=== PATIENT | female | born 1995 | race Two or more races ===

== ENCOUNTER 2024-07-12 16:33 | Emergency (ER) | payer MEDICAID, SELFPAY ==
[2024-07-12 17:22] VITALS: BP 98/64; PULSE 89; RESP 18; TEMP 36.9; O2SAT 98; BMI 21.1
--- NOTE | 2024-07-12 17:40 | PD.EDRME ---
Rapid Medical Screening Exam RME Arrival date/time: 07/12/24 16:33 Chief Complaint: Dizziness Time Seen by Provider: 07/12/24 17:37 Vital signs: Vital Signs Temperature 98.5 F 07/12/24 17:22 Pulse Rate 89 07/12/24 17:22 Respiratory Rate 18 07/12/24 17:22 Blood Pressure 98/64 07/12/24 17:22 Pulse Oximetry (%) 98 07/12/24 17:22 Oxygen Delivery Method Room Air 07/12/24 17:22 Vital signs reviewed by provider: Yes RME Narrative: 29-year-old female currently 17 weeks presents with dysuria and intermittent headache x 2 days. Denies vaginal bleeding and abdominal pain.
[2024-07-12] MEDS: ACETAMINOPHEN 325 MG TABLET 650 MG PO (18:04)
[2024-07-12 18:14] LABS: Collection Type, Urine Clean Catch
[2024-07-12 18:22] LABS: Bilirubin,Urine Negative (Negative); Blood,Urine Negative (Negative); Clarity,Urine Clear (Clear/Hazy); Color,Urine Colorless (Lt Yel-Yel); Culture Indicated,Urine Not Indicated; Glucose, Urine Negative (Negative); Ketones,Urine Negative (Negative); Leukocyte Esterase,Urine Negative (Negative); Nitrite,Urine Negative (Negative); Protein,Urine Negative (Neg - Trace); RBC,Urine 1 /hpf (0-3); Specific Gravity,Urine 1.009 (1.001-1.035); Squamous Epithelial Cell,Urine 2 /hpf (0-5); Urobilinogen,Urine Negative mg/dL (0.0-1.0); WBC,Urine < 1 /hpf (0-5)
[2024-07-12 19:42] VITALS: BP 105/72; PULSE 104; RESP 18; TEMP 36.8; O2SAT 100
--- NOTE | 2024-07-12 19:46 | EDNOTE_ITS ---
<Statement entered by Kiesha Bedolla MD - 07/12/24 20:23> As co-signing physician, I was present and available for consult prn. I concur with the plan and care as documented by the midlevel provider. ED Dizzyness RME/HPI General Chief Complaint: Dizziness Stated Complaint: HEADACHE WITH DIZZINESS 17 WEEKS GESTATION Time Seen by Provider: 07/12/24 17:37 Arrival date/time: 07/12/24 16:33 RME / HPI RME / HPI Narrative: 29-year-old female currently 17 weeks presents with dysuria and intermittent headache x 2 days. Also complained of dizziness, severity mild. Denies vaginal bleeding and abdominal pain. Patient denies any nasal congestion denies any cough denies any sore throat denies any fever. Patient is crepitus admitted para 5 1. Denies any swelling to the legs. Related Data Home Medications ?Medication ?Instructions ?Recorded ?Confirmed No Known Home Medications 01/11/24 02/05/24 Allergies Allergy/AdvReac Type Severity Reaction Status Date / Time almond Allergy Severe throat Verified 07/12/24 16:34 swells and gets a rash Penicillins Allergy Severe Swelling Verified 07/12/24 16:34 of Lip/Tongue/Throat Review of Systems Review of Systems Narrative Review of Systems: Review of system reviewed and within normal limits except mentioned in HPI ED Exam Narrative Physical exam: VITAL SIGNS: Reviewed. GENERAL APPEARANCE: Alert and interactive, follows commands, no acute distress, HEAD AND FACE: Non-traumatic. ENT: PERRL, pink conjunctivitis, eyelid no trauma, Mucous membrane moist. NECK: Supple, nontender, no nuchal rigidity. CHEST: No tenderness, no crepitus, no paradoxical movement, no retractions. LUNGS: Clear, well ventilated, symmetric, no rales, no wheezing, no ronchi, no stridor, good breath sounds bilaterally. HEART: Regular rate, regular rhythm, no murmur, no gallops. ABDOMEN: Soft, positive bowel sounds, nondistended, no guarding, nontender, no rebound, no masses, RECTAL: Deferred. GENITAL: Deferred. NEUROLOGICAL: Gross motor function intact sensory function intact, Appropriate for age. MUSCULOSKELETAL: low back nontender, full range of motion. EXTREMITIES: Nontender, full range of motion. SKIN: Color pink, dry, no rash, no lacerations, no abrasions, no contusions. LYMPHATICS: Deferred. Course Quality Measures none Orders Category Date Time Status Bedside COVID-19 Antigen Test NOW Care 07/12/24 17:40 Completed Bedside Influenza A&B Antigen Test NOW Care 07/12/24 17:40 Completed UA, C/S IF [Urinalysis, C/S if Indicated] Stat Lab 07/12/24 18:10 Completed Acetaminophen Tab [Tylenol Tab] Med 07/12/24 17:40 Discontinued 650 mg PO X1 ONE Acetaminophen Tab [Tylenol Tab] Med 07/12/24 19:43 Discontinued 650 mg PO X1 ONE Vital Signs Vital signs: Vital Signs Temperature 98.5 F 07/12/24 17:22 Pulse Rate 89 07/12/24 17:22 Respiratory Rate 18 07/12/24 17:22 Blood Pressure 98/64 07/12/24 17:22 Pulse Oximetry (%) 98 07/12/24 17:22 Oxygen Delivery Method Room Air 07/12/24 17:22 Dizziness MDM Narrative MDM Narrative:: 29-year-old female currently 17 weeks presents with dysuria and intermittent headache x 2 days. Also complained of dizziness, severity mild. Denies vaginal bleeding and abdominal pain. Patient denies any nasal congestion denies any cough denies any sore throat denies any fever. Patient is crepitus admitted para 5 1. Denies any swelling to the legs. Urinalysis negative for UTI. Was also negative for COVID and influenza. Patient was given Tylenol. Patient data External records reviewed:: None Clinical information provided by:: none Social determinants that could affect healthcare access:: none Patient has the following chronic illnesses:: None How is presenting disease/condition affected by chronic disease/condition?: no chronic disease Evaluation data The following diagnostics were reviewed and interpreted by me:: lab results Lab and/or radiology exams considered but not ordered:: None Interpretation Summary: Negative for UTI and urinalysis. Negative for COVID and influenza swab Medications / Prescriptions Medications or Prescriptions considered but not ordered:: None Medication administrations:: Medication Administration History Discontinued Medications Acetaminophen (Acetaminophen 325 Mg Tablet) 650 mg PO X1 ONE Stop: 07/12/24 17:41 Last Admin: 07/12/24 18:04 Dose: 650 mg Documented By: GLORIA Acetaminophen (Acetaminophen 325 Mg Tablet) 650 mg PO X1 ONE Stop: 07/12/24 19:44 Tylenol Consultations Consultation(s) initiated? (list below): No Diagnosis Dizziness Differential Diagnosis: other (Headache, dizziness, ) Most likely diagnosis given after review of the tests above:: Headache, 17 weeks Admission Indicated Admission indicated?: not indicated Explain why admission is indicated or not indicated:: Stable for discharge. Patient blood pressure was noted to be 105/72 heart rate 104. Admission Request Was there a request for admission?: No Disposition Plan Disposition Plan: Discharge Discharge Attestation Discharge Attestation: The patient was given an opportunity to ask questions and understood the discharge instructions. Discharge instructions specifically effects, indications for sooner follow up or return to the emergency department, and the expected course of current diagnosis. Patient condition: Stable Discharge Plan Plan Patient Disposition: HOME (Self Care) Disposition Comment: stable Prescriptions/Referrals Prescriptions/Med Rec: No Action No Known Home Medications Referrals: Nash Platt MD [Primary Care Provider] - In 1 week Problem List Clinical Impression: Headache, , Dizziness Patient/Caregiver Discharge Instructions Discharge Activity: activity as tolerated Education Materials: Self-Care for Headaches Additional Instructions: Thank you for the opportunity for serving you today. You are stable for discharged . You are advised to: Follow-up with your PCP in 1 to 2 days Return to ED for worsening of symptoms Increase oral fluids Take afos-lvm-nolfkmi Tylenol as needed for headache Print Language: German Stand Alone Forms: Malia Award Info., Patient Portal Info Letter JOEL/DAT Supervising Physician JOEL/DAT Supervising Physician: MD Graeme
== END 2024-07-12 19:50 | disposition home or self-care (01) ==
PROVIDERS: Physician Assistant; Emergency Provider Emergency Medicine; PCP Family Medicine
DX: O26.892 Other specified pregnancy related conditions, second trimester (principal); R51.9 Headache, unspecified; R42 Dizziness and giddiness; Z3A.17 17 weeks gestation of pregnancy
CPT/HCPCS: 81001; 87400; 87811; 99283; A9270

== ENCOUNTER 2024-07-22 16:35 | Emergency (ER) | payer MEDICAID, SELFPAY ==
[2024-07-22 16:37] VITALS: BMI 21.1
[2024-07-22 17:04] VITALS: BP 90/60; PULSE 92; RESP 16; TEMP 37.1; O2SAT 100
--- NOTE | 2024-07-22 17:08 | XR_ITS ---
Examination: Complete OB ultrasound greater than 14 weeks Date and time of exam: July 22, 2024 1724 hrs. Indications: Leaking amniotic fluid beginning 1:00 PM today Findings: Viable intrauterine single fetus with single amniotic sac presentation variable Cardiac motion 148 BPM Placenta anterior grade 1 Umbilical cord insertion seen Amniotic fluid volume normal Cervix 4.2 cm Right ovary 2.3 x 2.2 cm arterial flow Left ovary 2.0 x 2.2 cm arterial flow. Composite estimated gestational age based on BPD, head circumference, abdominal circumference, femur length is weeks 2 days Estimated weight 235 g. Survey of intracranial anatomy, spinal anatomy, abdominal anatomy, four-chamber heart performed with no abnormalities identified. Impression: Viable intrauterine gestation variable presentation Amniotic fluid volume adequate Placenta anterior grade 1 no abruption no previa.
--- NOTE | 2024-07-22 17:09 | PD.EDRME ---
Rapid Medical Screening Exam RME Arrival date/time: 07/22/24 16:35 29-year-old female presents emergency department complains of cramping and pain patient reports being approximately 18 weeks Chief Complaint: Abdominal Pain Time Seen by Provider: 07/22/24 17:01 Vital signs: Vital Signs Temperature 98.8 F 07/22/24 17:04 Pulse Rate 92 07/22/24 17:04 Respiratory Rate 16 07/22/24 17:04 Blood Pressure 90/60 07/22/24 17:04 Pulse Oximetry (%) 100 07/22/24 17:04 Oxygen Delivery Method Room Air 07/22/24 17:04
[2024-07-22 17:20] LABS: Basophils % (Auto) 0 % (0-2.5); Eosinophils % (Auto) 1 % (0-10); Hematocrit 33.2 % (36.0-46.0); Hemoglobin 11.3 g/dL (12.0-16.0); Immature Granulocytes % (Auto) 0 % (0-0); Immature Granulocytes Auto 0.03 Thou/mm3 (0.00-0.00); Lymphocytes # (Auto) 2.1 Thou/mm3 (1.0-4.8); Lymphocytes % (Auto) 27 % (10-50); Mean Corpuscular Hemoglobin 29.3 pg (25.0-35.0); Mean Corpuscular Volume 86 fL (80-100); Monocytes # (Auto) 0.7 Thou/mm3 (0.0-0.8); Monocytes % (Auto) 9 % (0-12); Neutrophils % (Auto) 64 % (37-80); Nucleated Red Blood Cell % 0 /100 WBC (0); Platelet Count 193 Thou/mm3 (140-440); RDW Standard Deviation 40.6 fL (36.4-46.3); Red Blood Count 3.86 Miln/mm3 (4.00-5.20); White Blood Count 7.8 Thou/mm3 (3.6-11.0)
[2024-07-22 17:58] LABS: Alanine Aminotransferase 16 U/L (10-49); Albumin/Globulin Ratio 1.4 (1.2-2.2); Alkaline Phosphatase 60 U/L (46-116); Anion Gap 7 (7-16); Aspartate Amino Transferase 14 U/L (0-34); BUN/Creatinine Ratio 24 Ratio (12-20); Bilirubin,Total 0.3 mg/dL (0.3-1.2); Blood Urea Nitrogen 12 mg/dL (9-23); Calcium 9.3 mg/dL (8.3-10.6); Calcium (Corrected) 9.3 mg/dL (8.5-10.1); Carbon Dioxide 26.4 mMol/L (20.0-31.0); Chloride 103 mMol/L (98-107); Creatinine (Component) 0.5 mg/dL (0.6-1.3); Estimated Creatinine Clearance 124.1 mL/min (>60); Globulin 2.9 gm/dL (2.3-3.5); Glucose 82 mg/dL (74-106); Osmolality,Calculated 270 (275-295); Potassium 4.1 mMol/L (3.4-5.1); Sodium 136 mMol/L (136-145); Total Protein 6.9 gm/dL (5.7-8.2); eGFR > 60 See Note
[2024-07-22 18:15] LABS: Collection Type, Urine Clean Catch
[2024-07-22 18:23] LABS: Bacteria,Urine Rare; Bilirubin,Urine Negative (Negative); Blood,Urine Negative (Negative); Budding Yeast,Urine Present; Clarity,Urine Turbid (Clear/Hazy); Color,Urine Lt-Yellow (Lt Yel-Yel); Glucose, Urine Negative (Negative); Ketones,Urine Negative (Negative); Leukocyte Esterase,Urine Negative (Negative); Nitrite,Urine Negative (Negative); Protein,Urine Negative (Neg - Trace); RBC,Urine 2 /hpf (0-3); Specific Gravity,Urine 1.023 (1.001-1.035); Squamous Epithelial Cell,Urine 2 /hpf (0-5); Urobilinogen,Urine Negative mg/dL (0.0-1.0); WBC,Urine 5 /hpf (0-5)
[2024-07-22 18:27] LABS: Beta HCG,Quantitative 80124 mIU/mL (<5.0)
--- NOTE | 2024-07-22 19:22 | EDNOTE_ITS ---
ED Abdominal Pain RME/HPI General Chief Complaint: Abdominal Pain Stated complaint: TIGHTENING LOWER ABD BILAT. SINCE 1PM. 18WKS OB Time seen by provider: 07/22/24 17:01 Arrival date/time: 07/22/24 16:35 29-year-old female A1 approximately 18 weeks presents emergency department complaining of lower abdominal and pelvic cramping and pressure that started earlier this morning. Patient reports was doing house chores when onset of symptoms. Patient denies any vaginal bleeding, dysuria, fevers, chills, nausea vomiting, or any other associated symptom. Limitations: no limitations RME / HPI RME / HPI narrative: 07/22/24 16:35 29-year-old female presents emergency department complains of cramping and pain patient reports being approximately 18 weeks Related Data Home Medications ?Medication ?Instructions ?Recorded ?Confirmed No Known Home Medications 01/11/24 02/05/24 Allergies Allergy/AdvReac Type Severity Reaction Status Date / Time almond Allergy Severe throat Verified 07/22/24 16:41 swells and gets a rash Penicillins Allergy Severe Swelling Verified 07/22/24 16:41 of Lip/Tongue/Throat Review of Systems Review of Systems Systems Reviewed: All systems reviewed, normal except as documented Constitutional Constitutional: Reports system reviewed and no additional complaints, except as documented, Denies body ache(s), Denies chills and Denies fever(s) Eyes Eyes: Reports system reviewed and no additional complaints, except as documented and Denies change in vision ENT Ears, Nose, Mouth, and Throat: Reports system reviewed and no additional complaints, except as documented, Denies disequilibrium, Denies dizziness, Den ies sore throat and Denies vertigo Cardiovascular Cardiovascular: Reports system reviewed and no additional complaints, except as documented, Denies chest pain and Denies dyspnea Respiratory Respiratory: Reports system reviewed and no additional complaints, except as documented, Denies chest congestion, Denies cough and Denies dyspnea Gastrointestinal Gastrointestinal: Reports system reviewed and no additional complaints, except as documented, Reports abdominal pain, Denies nausea and Denies vomiting Musculoskeletal Musculoskeletal: Reports system reviewed and no additional complaints, except as documented, Denies abnormal gait and Denies arthralgias Integumentary/Breasts Skin/Breast: Reports system reviewed and no additional complaints, except as documented, Denies erythema, Denies rash and Denies wounds Neurologic Neurologic: Reports system reviewed and no additional complaints, except as do cumented, Denies abnormal gait, Denies disequilibrium, Denies dizziness and Denies vertigo Past Medical History Past Medical History NEUROLOGIC: Negative Neurological Disorders or Seizures CARDIAC: Positive Cardiac Disorders and Hypotension; Negative Congestive Heart Failure RESPIRATORY: Positive Asthma; Negative Chronic Obstructive Pulmonary Disease (COPD) GASTROINTESTINAL: Positive Gastrointestinal Disorders (ABDOMINAL PAIN, RECTAL BLEEDING) GENITOURINARY: Negative Genitourinary Disorders or Renal Disease MUSCULOSKELETAL: Negative Musculoskeletal Disorders ENDOCRINE: Negative Endocrine Disorders, Diabetes Mellitus Type 1 or Diabetes Mellitus Type 2 HEMATOLOGIC: Positive Anemia; Negative Sickle Cell Disease PSYCHO/SOCIAL: Positive Anxiety OTHER HISTORY: Positive Hospitalization and Chicken Pox; Negative Blood Transfusions, Anesthesia Reactions, Measles, Mumps or Cancer Family History FAMILY HISTORY: Positive Family Respiratory Disorders and Family Cardiac Disorders Surgical History SURGICAL: Negative Section Social History SMOKING STATUS: Never smoker SECOND HAND EXPOSURE: Yes (significant other smoker) ED Exam General Limitations: Present no limitations General appearance: Present alert and in no apparent distress Head Head exam: Present atraumatic Eye Eye exam: Present normal appearance, PERRL and EOMI ENT ENT exam: Present normal exam, normal oropharynx and mucous membranes moist Neck Neck exam: Present normal inspection, full ROM and trachea midline Chest Chest inspection: Present normal inspection and symmetric chest wall rise Respiratory Respiratory exam: Present normal lung sounds bilaterally Cardiovascular Cardiovascular exam: Present regular rate, normal rhythm and normal heart sounds Abdominal Exam Abdominal exam: Present soft and normal bowel sounds Extremities Exam Extremities exam: Present normal inspection and full ROM Back Exam Back exam: Present normal inspection and full ROM Neurological Exam Neurological exam: Present alert, oriented X3 and CN II-XII intact Psychiatric Psychiatric exam: Present normal affect and normal mood Skin Skin exam: Present warm, dry, intact and normal color Course Quality Measures none Orders Category Date Time Status US OB >= 14 weeks Fetus Stat Exams 07/22/24 17:08 Completed ABO/RH Type Stat Lab 07/22/24 17:11 Completed Beta HCG,Quantitative Stat Lab 07/22/24 17:11 Completed CBC Stat Lab 07/22/24 17:11 Completed Comprehensive Metabolic Panel Stat Lab 07/22/24 17:11 Completed UA [Urinalysis] Stat Lab 07/22/24 18:10 Completed Urine Culture Stat Lab 07/22/24 18:10 Received Vital Signs Vital signs: Vital Signs Temperature 98.8 F 07/22/24 17:04 Pulse Rate 92 07/22/24 17:04 Respiratory Rate 16 07/22/24 17:04 Blood Pressure 90/60 07/22/24 17:04 Pulse Oximetry (%) 100 07/22/24 17:04 Oxygen Delivery Method Room Air 07/22/24 17:04 100% room air within normal limits Abdominal Pain MDM MDM Narrative MDM Narrative:: 29-year-old female A1 approximately 18 weeks presents emergency department complaining of lower abdominal and pelvic cramping and pressure that started earlier this morning. Patient reports was doing house chores when onset of symptoms. Patient denies any vaginal bleeding, dysuria, fevers, chills, nausea vomiting, or any other associated symptom. CBC was unremarkable for any leukocytosis. CMP was unremarkable and beta-hCG greater than 80,000. Urinalysis was unremarkable. Ultrasound findings viable intrauterine gestation with heart tone 148 BPM. Patient appears nontoxic and hemodynamically stable. Patient reported improvement in symptoms and denies any vaginal bleeding. Patient discharge directed to have close follow-up with [facility] and return to emergency department for any worsening symptoms or as needed. Patient data External records reviewed:: [facility] previous records Clinical information provided by:: patient Social determinants that could affect healthcare access:: none Patient has the following chronic illnesses:: None How is presenting disease/condition affected by chronic disease/condition?: no chronic disease Evaluation data The following diagnostics were reviewed and interpreted by me:: lab results and radiology exam(s) Lab and/or radiology exams considered but not ordered:: Ordered Interpretation Summary: Interpreted by me Medications / Prescriptions Medications or Prescriptions considered but not ordered:: N/A Medication administrations:: N/A Consultations Consultation(s) initiated? (list below): No Diagnosis Differential diagnosis abdominal pain: abdominal pain, acute appendicitis, calculus of kidney, constipation and pancreatitis Most likely diagnosis given after review of the tests above:: Abdominal pain during Admission Indicated Admission indicated?: not indicated Admission Request Was there a request for admission?: No Disposition Plan Disposition Plan: Discharge Discharge Attestation Discharge Attestation: The patient and all family members were given an opportunity to ask questions and understood the discharge instructions. Discharge instructions specifically effects, indications for sooner follow up or return to the emergency department, and the expected course of current diagnosis. Patient condition: Stable Discharge Plan Plan Patient Disposition: HOME (Self Care) Disposition Comment: Stable Prescriptions/Referrals Prescriptions/Med Rec: No Action No Known Home Medications Referrals: Nash Platt MD [Primary Care Provider] - In 1 week Problem List Clinical Impression: Abdominal pain during Patient/Caregiver Discharge Instructions Discharge Activity: activity as tolerated Education Materials: ED Abdominal Pain Unkn Cause Fem Additional Instructions: Pelvic rest. Close follow-up with [facility] in 2 to 3 days. Return to emergency department for any worsening symptoms or as needed. Print Language: Portuguese Stand Alone Forms: Malia Award Info., Patient Portal Info Letter PA/SURFACE SUPERVISOR Supervising Physician PA/SURFACE SUPERVISOR Supervising Physician: Dr. Martell
== END 2024-07-22 19:35 | disposition home or self-care (01) ==
PROVIDERS: Nurse Practitioner Primary Care; Emergency Provider Emergency Medicine; PCP Family Medicine
DX: O26.892 Other specified pregnancy related conditions, second trimester (principal); R10.2 Pelvic and perineal pain; Z3A.18 18 weeks gestation of pregnancy
CPT/HCPCS: 36415; 76805; 80053; 81001; 84702; 85025; 86900; 86901; 87086; 99284

== ENCOUNTER 2024-10-29 15:06 | Emergency (ER) | payer MEDICAID, SELFPAY ==
[2024-10-29 15:56] VITALS: BP 99/65; PULSE 87; RESP 16; TEMP 36.6; O2SAT 99
--- NOTE | 2024-10-29 15:57 | EKG_ITS ---
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
--- NOTE | 2024-10-29 15:58 | PD.EDRME ---
Rapid Medical Screening Exam RME Arrival date/time: 10/29/24 15:06 29 year old female present to ED for c/o chest pain/dizziness 1 hour. 35 week I have greeted and performed a focused initial assessment of this patient. A comprehensive ED assessment and evaluation of the patient, analysis of all test results, and completion of the medical decision making process will be conducted by additional ED providers. Chief Complaint: Dizziness Time Seen by Provider: 10/29/24 15:35 Vital signs: Vital Signs Temperature 98 F 10/29/24 15:56 Pulse Rate 87 10/29/24 15:56 Respiratory Rate 16 10/29/24 15:56 Blood Pressure 99/65 10/29/24 15:56 Pulse Oximetry (%) 99 10/29/24 15:56 Oxygen Delivery Method Room Air 10/29/24 15:56
[2024-10-29 17:08] LABS: Collection Type, Urine Voided
[2024-10-29 17:10] LABS: Basophils % (Auto) 0 % (0-2.5); Eosinophils # (Auto) 0.1 Thou/mm3 (0.0-0.5); Eosinophils % (Auto) 1 % (0-10); Hematocrit 31.8 % (36.0-46.0); Hemoglobin 10.4 g/dL (12.0-16.0); Immature Granulocytes % (Auto) 1 % (0-0); Immature Granulocytes Auto 0.08 Thou/mm3 (0.00-0.00); Lymphocytes # (Auto) 1.6 Thou/mm3 (1.0-4.8); Lymphocytes % (Auto) 21 % (10-50); Mean Corpuscular HGB Conc 32.7 g/dl (31.0-37.0); Mean Corpuscular Hemoglobin 27.1 pg (25.0-35.0); Mean Corpuscular Volume 83 fL (80-100); Monocytes # (Auto) 0.8 Thou/mm3 (0.0-0.8); Monocytes % (Auto) 11 % (0-12); Neutrophils # (Auto) 4.8 Thou/mm3 (1.8-7.7); Neutrophils % (Auto) 65 % (37-80); Nucleated Red Blood Cell % 0 /100 WBC (0); Platelet Count 219 Thou/mm3 (140-440); RDW Standard Deviation 42.5 fL (36.4-46.3); Red Blood Count 3.84 Miln/mm3 (4.00-5.20); White Blood Count 7.3 Thou/mm3 (3.6-11.0)
[2024-10-29 17:20] LABS: Bacteria,Urine Rare; Bilirubin,Urine Negative (Negative); Blood,Urine Negative (Negative); Clarity,Urine Clear (Clear/Hazy); Color,Urine Lt-Yellow (Lt Yel-Yel); Glucose, Urine Negative (Negative); Ketones,Urine Negative (Negative); Leukocyte Esterase,Urine Positive (Negative); Nitrite,Urine Negative (Negative); Protein,Urine Negative (Neg - Trace); RBC,Urine 3 /hpf (0-3); Specific Gravity,Urine 1.009 (1.001-1.035); Squamous Epithelial Cell,Urine 5 /hpf (0-5); Urobilinogen,Urine Negative mg/dL (0.0-1.0); WBC,Urine 2 /hpf (0-5)
[2024-10-29 17:34] LABS: Alanine Aminotransferase 14 U/L (10-49); Albumin, Serum 3.6 gm/dL (3.5-5.0); Albumin/Globulin Ratio 1.2 (1.2-2.2); Alkaline Phosphatase 96 U/L (46-116); Anion Gap 9 (7-16); Aspartate Amino Transferase 16 U/L (0-34); BUN/Creatinine Ratio 14 Ratio (12-20); Bilirubin,Total 0.3 mg/dL (0.3-1.2); Blood Urea Nitrogen 7 mg/dL (9-23); Calcium 8.8 mg/dL (8.3-10.6); Calcium (Corrected) 9.1 mg/dL (8.5-10.1); Carbon Dioxide 24.7 mMol/L (20.0-31.0); Chloride 104 mMol/L (98-107); Creatinine (Component) 0.5 mg/dL (0.6-1.3); Globulin 3.1 gm/dL (2.3-3.5); Glucose 82 mg/dL (74-106); Lipase 32 U/L (12-53); Osmolality,Calculated 272 (275-295); Potassium 4.1 mMol/L (3.4-5.1); Sodium 138 mMol/L (136-145); Total Protein 6.7 gm/dL (5.7-8.2); Troponin I < 0.002 ng/mL (0.0-0.045); eGFR > 60 See Note
[2024-10-29 19:38] VITALS: BP 98/62; PULSE 97; RESP 16; TEMP 36.6; O2SAT 99
--- NOTE | 2024-10-29 19:40 | PD.EDDIZZY ---
ED Dizzyness RME/HPI General Chief Complaint: Dizziness Stated Complaint: LOW BP, SOB, DIZZY, CHEST PAIN, PREG 32W5D, Time Seen by Provider: 10/29/24 15:35 Arrival date/time: 10/29/24 15:06 29 year old female present to emergency room with c/o of shortness of breath, dizziness and currently 32 week . pt report intermittent abdominal pain without vaginal bleeding SEVERITY: Symptoms are described as being severe with limitations on activities of daily living CONTEXT: The patient is unable to identify any inciting events. DURATION/TIMING: The symptoms started approximately [employer] SYMPTOMS: The patient is unable to identify any other associated symptoms. MODIFYING FACTORS: The patient is unable to identify any alleviating or aggravating symptoms. PERTINENT ROS: no fevers, no cough, no pleuritic pain, no ripping or tearing sensations, denies any lower extremity edema and no unilateral swelling, no nausea,vomiting, diarrhea, no dizziness/headache no rash no loc/syncope episode no abd/back pain no dsyuria,urgency,frequency REVIEW OF SYSTEMS: See History of Present Illness - with the exception of those mentioned in the history of present illness, all other systems reviewed and reported as negative GENERAL: In general the patient is awake, interactive, in an emergency department gurney. HEAD/EYES/EARS/NOSE/THROAT: normo-cephalic, atraumatic, mucus membranes are moist, anicteric, palpebral conjunctiva is pink, trachea is midline. CARDIOVASCULAR: regular rate and regular rhythm, no murmurs, heart sounds are not distant, strong pulses in all four extremities that are equal and symmetric bilateral upper and lower extremities, normal capillary refill. CHEST/PULMONARY: normal chest rise and fall, good air movement, clear to auscultation bilaterally, normal inspiratory to expiratory ratios without evidence of respiratory distress. NECK: No midline/Paraspinal tenderness, no step off ROM/Strenght intact No Kernig and bruzinski sign. No trauma ABDOMEN: soft, not tender, no masses appreciated BACK: normal range of motion without pain. NEUROLOGICAL: cranio-facial features are symmetric, moves all four extremities equally without obvious limitations or weakness. EXTREMITY: no tenderness to palpation over the long bones or large joints of the bilateral upper and lower extremities, no joint swelling, no joint erythema, no signs of trauma, no unilateral leg swelling and no peripheral edema. SKIN: warm, dry, well-perfused, no jaundice, no rash, no telangiectasias or petechia. PSYCH: calm, cooperative, no evidence of psychosis or agitation RME / HPI RME / HPI Narrative: 10/29/24 15:06 29 year old female present to ED for c/o chest pain/dizziness 1 hour. 35 week I have greeted and performed a focused initial assessment of this patient. A comprehensive ED assessment and evaluation of the patient, analysis of all test results, and completion of the medical decision making process will be conducted by additional ED providers. Related Data Home Medications ?Medication ?Instructions ?Recorded ?Confirmed No Known Home Medications 01/11/24 02/05/24 Allergies Allergy/AdvReac Type Severity Reaction Status Date / Time almond Allergy Severe throat Verified 10/29/24 15:10 swells and gets a rash Penicillins Allergy Severe Swelling Verified 10/29/24 15:10 of Lip/Tongue/Throat Course Course Course Narrative: review of labs, ekg, and urine no acute findings pt report feeling better and sx has resolved vital stable without IV fluids no nausea or vomiting no fever, no leg pain or near/loc pt is comfortable to go home but will be sent upstair to OB to get baby check. Quality Measures none Orders Category Date Time Status Bedside Influenza A&B Antigen Test NOW Care 10/29/24 15:57 Completed EKG (ED ONLY) *Do not use* NOW Care 10/29/24 15:57 Completed EKG (ED Only) Stat Exams 10/29/24 15:57 Draft CBC Stat Lab 10/29/24 16:24 Completed CMP [Comprehensive Metabolic Panel] Stat Lab 10/29/24 16:24 Completed Lipase Stat Lab 10/29/24 16:24 Completed Troponin I Stat Lab 10/29/24 16:24 Completed UA [Urinalysis] Stat Lab 10/29/24 16:48 Completed Urine Culture Stat Lab 10/29/24 16:48 Received Vital Signs Vital signs: Vital Signs Temperature 98 F 10/29/24 15:56 Pulse Rate 87 10/29/24 15:56 Respiratory Rate 16 10/29/24 15:56 Blood Pressure 99/65 10/29/24 15:56 Pulse Oximetry (%) 99 10/29/24 15:56 Oxygen Delivery Method Room Air 03/18/25 15:56 Procedures -ED EKG Interpretation #1: Date of EK10/29/24 Rate: 80 Interpretation: Reviewed by me EKG Impression: Normal sinus rhythm, No acute ST-T changes, No ectopy, No ischemic changes and Normal QRS Dizziness Patient data External records reviewed:: [facility] previous records Clinical information provided by:: patient Social determinants that could affect healthcare access:: none Patient has the following chronic illnesses:: How is presenting disease/condition affected by chronic disease/condition?: uneffected by Evaluation data The following diagnostics were reviewed and interpreted by me:: lab results, radiology exam(s) and EKG tracing(s) Lab and/or radiology exams considered but not ordered:: n/a Interpretation Summary: as stated in course Medications / Prescriptions Medications or Prescriptions considered but not ordered:: n/a Medication administrations:: n/a Consultations Consultation(s) initiated? (list below): No Diagnosis Most likely diagnosis given after review of the tests above:: dizziness, Admission Indicated Admission indicated?: not indicated Admission Request Was there a request for admission?: No Disposition Plan Disposition Plan: Discharge Discharge Attestation Discharge Attestation: The patient and all family members were given an opportunity to ask questions and understood the discharge instructions. Discharge instructions specifically effects, indications for sooner follow up or return to the emergency department, and the expected course of current diagnosis. Patient condition: Stable Discharge Plan Plan Patient Disposition: HOME (Self Care) Health Concerns: Cleared to go to OB Prescriptions/Referrals Prescriptions/Med Rec: No Action No Known Home Medications Referrals: No Primary/Family,Physician [Primary Care Provider] - In 1 week Problem List Clinical Impression: Dizziness, Abdominal pain in Patient/Caregiver Discharge Instructions Print Language: Hebrew Stand Alone Forms: Malia Award Info., Patient Portal Info Letter
== END 2024-10-29 19:46 | disposition home or self-care (01) ==
PROVIDERS: Physician Assistant; Emergency Provider Emergency Medicine
DX: O26.893 Other specified pregnancy related conditions, third trimester (principal); R10.9 Unspecified abdominal pain; R42 Dizziness and giddiness; Z3A.32 32 weeks gestation of pregnancy
CPT/HCPCS: 36415; 80053; 81001; 83690; 84484; 85025; 87086; 93005; 99283

== ENCOUNTER 2024-10-29 19:51 | Observation (INO) | payer MEDICAID, SELFPAY ==
[2024-10-29 19:53] VITALS: BP 112/62; PULSE 95; RESP 18; RESP 98; TEMP 36.7; BMI 25.3
[2024-10-29 20:03] VITALS: TEMP 36.7
== END 2024-10-29 20:23 | disposition home or self-care (01) ==
PROVIDERS: Admitting Provider Obstetrics & Gynecology; Visit Provider Obstetrics & Gynecology
DX: Z34.83 Encounter for supervision of other normal pregnancy, third trimester (principal); Z3A.32 32 weeks gestation of pregnancy
CPT/HCPCS: 59899

== ENCOUNTER 2024-11-21 16:18 | Inpatient (IN) | payer MEDICAID, SELFPAY ==
[2024-11-21] VITALS (93 sets, daily range): BP systolic 88–109; BP diastolic 50–64; PULSE 107–124; RESP 19–97; TEMP 37.3–38.8; O2SAT 96–100; BMI 25.3
[2024-11-21 17:05] LABS: ROM Kit Lot # 57804486; ROM Swab Mixed By: BARBE1; Swb Mxed in Solvent 1 min? Yes
--- NOTE | 2024-11-21 17:29 | XR_ITS ---
Examination: Complete OB ultrasound greater than 14 weeks Date and time of exam: November 21, 20242002 hrs. Indications: Fever beginning 2 days ago Findings: Viable intrauterine single fetus with single amniotic sac presentation cephalic Cardiac motion 166 BPM Placenta anterior grade 2 Umbilical cord insertion seen Amniotic fluid index 4.3 cm spine posterior Cervix 3.3 cm Ovaries obscured by the uterus. Composite estimated gestational age based on BPD, head circumference, abdominal circumference, femur length is 35 weeks 2 days Estimated weight 2576 g. Survey of intracranial anatomy, spinal anatomy, abdominal anatomy, four-chamber heart performed with no abnormalities identified. Impression: Viable intrauterine gestation cephalic presentation Estimated gestational age 35 weeks 2 days.
--- NOTE | 2024-11-21 17:29 | XR_ITS ---
Examination: Biophysical profile, ultrasound Date and time of exam: November 21, 2024 1934 hrs. Indications: Fever beginning 2 days ago Technique: Multiple transabdominal sonographic images of the pelvis abdomen obtained. Attention is directed to the breathing movement, gross body movement, amniotic fluid volume and tone. Findings: Amniotic fluid index 4.9 cm Total biophysical profile is 8 of 8. breathing movement is 2. Gross body movement is 2. tone is 2. Qualitative amniotic fluid volume is 2 Impression: Biophysical profile is 8 of 8.
[2024-11-21] MEDS: RINGERS LACTATED 1000 ML 1,000 ML 999 ML IV ×2 (17:35→18:38)
[2024-11-21 17:40] LABS: Rupture of Fetal Membranes Negative (Negative)
[2024-11-21] MEDS: ACETAMINOPHEN IVPB 1,000 MG/100 ML VIAL 250 MG IV (18:42)
--- NOTE | 2024-11-21 19:30 | XR_ITS ---
Examination: AP chest single view Technique one AP portable semiupright chest single view Exam date and time: November 21, 20242022 hrs. Comparison June 06, 2022 Indications: Onset sepsis today Findings: Normal heart size Mild vascular congestion. No lobar pneumonia Intact osseous structures Impression: Mild vascular congestion No lobar pneumonia
--- NOTE | 2024-11-21 19:30 | EKG_ITS ---
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
[2024-11-21 19:31] LABS: COVID-19 Antigen (In-House) Negative (Negative)
[2024-11-21 20:06] LABS: Collection Type, Urine Clean Catch
[2024-11-21] MEDS: DEXTROSE 5%-LACTATED RINGERS 1,000 ML 125 ML IV (20:30)
--- NOTE | 2024-11-21 20:45 | PD.LDHP ---
Documentation for date of: 11/21/24 OB Labor/Induct. HPI History of Present Illness : 6 Term pregnancies: 4 pregnancies: 0 Living children: 4 History of Abortions: Spontaneous and Elective: 1 History of sections: No History of : No History of present illness: 29 y/o @36w0d , LMP and 10 w US, presented with fever and feeling unwell for few days. Patient kids are ill and she also believes she has an ear and throat pain. Patient has been having coughing and says her chest hurts because of coughing . [place] however doesnot feel chest pain. With constant cough however , she feels like she is short of breath. Ronaldo is unsure if she took any influenza vaccine in this pregnnacy . Pt denied any nausea , vomitting .has had a meal at 2.30 pm. Although earlier she did feel diziness, currently she doesnot feel diziness any more . Occasional contractions felt , also felt leaking . denied any bleeding. H/O asthma, however , last time ronaldo used any inhaler was 6 years back No h/o CHTN, Diabetes , immunocompromising condition. History of Present Dating criteria: LMP confirmed by 1st trimester US Adequate Care: Yes Labs Narrative: GC -ve, GTT -ve Review of Systems Review of Systems Systems Reviewed: All systems reviewed, normal except as documented Constitutional Constitutional: Reports system reviewed and no additional complaints, except as documented, Denies body ache(s), Denies chills and Denies fever(s) Eyes Eyes: Reports system reviewed and no additional complaints, except as documented and Denies change in vision ENT Ears, Nose, Mouth, and Throat: Reports system reviewed and no additional complaints, except as documented, Denies disequilibrium, Denies dizziness, Denies sore throat and Denies vertigo Cardiovascular Cardiovascular: Reports system reviewed and no additional complaints, except as documented, Denies chest pain and Denies dyspnea Respiratory Respiratory: Reports system reviewed and no additional complaints, except as documented, Denies chest congestion, Denies cough and Denies dyspnea Gastrointestinal Gastrointestinal: Reports system reviewed and no additional complaints, except as documented, Reports abdominal pain, Denies nausea and Denies vomiting Musculoskeletal Musculoskeletal: Reports system reviewed and no additional complaints, except as documented, Denies abnormal gait and Denies arthralgias Integumentary/Breasts Skin/Breast: Reports system reviewed and no additional complaints, except as documented, Denies erythema, Denies rash and Denies wounds Neurologic Neurologic: Reports system reviewed and no additional complaints, except as documented, Denies abnormal gait, Denies disequilibrium, Denies dizziness and Denies vertigo Past Medical History Surgical History SURGICAL: Negative Section Meds Home Medications and Allergies Home Medications ?Medication ?Instructions ?Recorded ?Confirmed ?Type acetaminophen 500 mg tablet 500 mg PO Q6H PRN fever or pain 11/21/24 11/21/24 History vit no.95-ferrous 1 tab PO DAILY 11/21/24 11/21/24 History fumarate 28 mg-folic acid 800 mcg tablet () Allergies Allergy/AdvReac Type Severity Reaction Status Date / Time almond Allergy Severe throat Verified 11/21/24 20:03 swells and gets a rash Penicillins Allergy Severe Swelling Verified 11/21/24 20:03 of Lip/Tongue/Throat OB Exam Physical Exam Vital signs: Temp Pulse Resp BP Pulse Ox 101.9 F H 114 H 19 104/58 L 100 11/21/24 20:10 11/21/24 20:40 11/21/24 20:10 11/21/24 20:40 11/21/24 20:25 Constitutional Constitutional: no acute distress Routine HEENT Exam Head: Present normocephalic and atraumatic Eye: Present EOMI and PERRL ENT: Present mucous membranes moist Routine Neck Exam Neck: Present supple and trachea midline Routine Respiratory Exam Comments: o2 saturation 99-100% cough+ Routine Cardiovascular Exam Cardiovascular: Present RRR Routine Abdominal Exam Abdominal: Present soft and normoactive bowel sounds Detailed Labor and Delivery Exam Comments: tachycardia resolving not in labor Routine Extremities Exam Extremities: Present full ROM Routine Skin Exam Skin: Present intact, dry and warm Routine Neurological Exam Neurological: Present alert, oriented X3 and CN II-XII intact Routine Psychiatric Exam Psychiatric: Present normal affect and normal thought process OB Results Labs 11/21/24 20:21 11/21/24 20:21 Impressions Impression: 29 y/o @36w, here for fever from URTI Influenza B positive Saturation 100%, ABG pending Sepsis triggered Xray chest no pneumonia Lactic acid normal EKG sinus tachycardia tachycardia> resolving after IV fluids moderate variability acceleration presnet no decel Maternal hypoglycemia( BG 61) s/p D5 LR Asthma last inhaler use 6 years ago IM consultation Pregnanacy is Uncomplicated cephalic 35w2d per US BPP 8/8( DONY 4.9?), MVP>2 Amnisure negative hypokalemia k 3.1 OB Assessment & Plan Additional Plan Additional Plan Comment: admit to L&D for observation IVF D5+LR Tylenol q6 PRN Tamiflu started Broad spectrum antibiotics pending blood culture Contineuos FHT monitoring DONY to be repeated tomorow in case of oligohydramnios , IOL will be initiated Pottasium oral supplementation
[2024-11-21 20:46] LABS: Lactate (Lactic Acid) 1.3 mMol/L (0.4-2.0)
[2024-11-21 20:47] LABS: Bacteria,Urine Rare; Bilirubin,Urine Negative (Negative); Blood,Urine Negative (Negative); Clarity,Urine Clear (Clear/Hazy); Color,Urine Yellow (Lt Yel-Yel); Glucose, Urine Negative (Negative); Ketones,Urine 1+ (Negative); Leukocyte Esterase,Urine Negative (Negative); Nitrite,Urine Negative (Negative); Protein,Urine Negative (Neg - Trace); RBC,Urine 3 /hpf (0-3); Specific Gravity,Urine 1.014 (1.001-1.035); Squamous Epithelial Cell,Urine 2 /hpf (0-5); Urobilinogen,Urine Negative mg/dL (0.0-1.0); WBC,Urine 3 /hpf (0-5)
[2024-11-21 20:51] LABS: Basophils % (Auto) 0 % (0-2.5); Eosinophils % (Auto) 0 % (0-10); Hematocrit 27.3 % (36.0-46.0); Immature Granulocytes % (Auto) 1 % (0-0); Immature Granulocytes Auto 0.05 Thou/mm3 (0.00-0.00); Lymphocytes # (Auto) 0.6 Thou/mm3 (1.0-4.8); Lymphocytes % (Auto) 11 % (10-50); Mean Corpuscular HGB Conc 32.2 g/dl (31.0-37.0); Mean Corpuscular Hemoglobin 26.5 pg (25.0-35.0); Mean Corpuscular Volume 82 fL (80-100); Monocytes # (Auto) 0.7 Thou/mm3 (0.0-0.8); Monocytes % (Auto) 12 % (0-12); Neutrophils % (Auto) 75 % (37-80); Nucleated Red Blood Cell % 0 /100 WBC (0); Platelet Count 161 Thou/mm3 (140-440); RDW Standard Deviation 46.4 fL (36.4-46.3); Red Blood Count 3.32 Miln/mm3 (4.00-5.20); White Blood Count 5.3 Thou/mm3 (3.6-11.0)
[2024-11-21 20:54] LABS: Hemoglobin 8.8 g/dL (12.0-16.0)
[2024-11-21 20:59] LABS: Influenza A Ag Negative; Influenza B Ag Positive
[2024-11-21 21:07] LABS: Partial Thromboplastin Time 28.5 Seconds (22.0-36.0); Prothrombin Time 10.8 Seconds (9.0-12.2)
[2024-11-21 21:10] LABS: Alanine Aminotransferase 19 U/L (10-49); Albumin/Globulin Ratio 1.1 (1.2-2.2); Alkaline Phosphatase 105 U/L (46-116); Anion Gap 12 (7-16); Aspartate Amino Transferase 21 U/L (0-34); BUN/Creatinine Ratio 12 Ratio (12-20); Bilirubin,Total 0.4 mg/dL (0.3-1.2); Blood Urea Nitrogen 6 mg/dL (9-23); Calcium 8.5 mg/dL (8.3-10.6); Calcium (Corrected) 9.3 mg/dL (8.5-10.1); Carbon Dioxide 19.9 mMol/L (20.0-31.0); Chloride 106 mMol/L (98-107); Creatinine (Component) 0.5 mg/dL (0.6-1.3); Estimated Creatinine Clearance 137.6 mL/min (>60); Globulin 2.7 gm/dL (2.3-3.5); Glucose 75 mg/dL (74-106); Osmolality,Calculated 272 (275-295); Potassium 3.1 mMol/L (3.4-5.1); Sodium 138 mMol/L (136-145); Total Protein 5.7 gm/dL (5.7-8.2); Troponin I < 0.002 ng/mL (0.0-0.045); eGFR > 60 See Note
[2024-11-21 21:23] LABS: Allen Test Performed/OK; Base Excess -2 (-3-3); HCO3 22 mEq/L (20-26); Inspired Oxygen, FIO2 21 %; O2 Saturation 99 % (91-98); PCO2 32 mmHg (32.0-48.0); PO2 97 mmHg (83-108); Puncture Site Left Radial; pH, Arterial 7.44 (7.35-7.45)
[2024-11-21] MEDS: CLINDAMYCIN 900MG IVPB 900 MG in PRE-MIXED 1 BAG 50 MG IV (21:27)
[2024-11-21 22:00] LABS: Procalcitonin 0.07 ng/ml (0.0-0.49)
[2024-11-21] MEDS: POTASSIUM CHLORIDE 20 mEq TABCR PO (22:15)
[2024-11-21] MEDS: OSELTAMIVIR 75 MG CAPSULE PO (22:16)
[2024-11-21] MEDS: RINGERS LACTATED 1000 ML 1,000 ML 100 ML IV (22:19)
--- NOTE | 2024-11-21 22:23 | EVENTNT_ITS ---
Documentation for date of: 11/21/24 Event Note Event Note: A 29-year-old female presented to the hospital with the chief complaint of fever and generalized weakness. The fever began yesterday and has been accompanied by chills, persistent cough, mild shortness of breath, and hoarseness of voice. The patient denies chest pain but reports a sensation of chest heaviness, likely due to coughing. She reports no dysuria and maintains a good appetite. She also notes mild uterine contracti ons and some fluid leakage, though she denies any vaginal bleeding. Earlier in the day, she experienced dizziness which has since resolved. She reports that her daughter had an ear infection two weeks ago but denies any current sick contacts at home. The patient has a history of asthma, though she has not used an inhaler in six years. She has no history of HTN, DM, or immunocompromising conditions. She is not on any medications or supplements. She is at 36 weeks gestation and reports occasional hypotension. Social history is negative for smoking, alcohol, or drug use. She has five children and this is her sixth . In the OB triage, vital signs were temp 101.9?F, HR 114 bpm, RR 19, BP 104/58 mmHg. Lab results showed WBC 5.3, Hb 8.8, Plt 161, Na 138, K 3.1, BUN 6, Cr 0.5, lactic acid 0.07, and procalcitonin 1.3. UA revealed WBC 3 and nitrite negative. CXR showed no lobar pneumonia. EKG revealed sinus tachycardia. Rapid influenza testing was positive for Influenza B. She was admitted to the OB service, and Medicine was consulted for sepsis management. See the resident's note for the full consultation.
--- NOTE | 2024-11-21 23:25 | ESCONSULT_ITS ---
HPI Data of Consult Requesting Physician: Prateek Harmon MD Admitting Provider: Prateek Harmon MD Attending Provider: Prateek Harmon MD Primary Care Provider: Physician No Primary/Family Consult Narrative History of present illness: The patient is a 29-year-old female with significant past medical history of remote asthma presented to ED with chief complaint of cough, SOB, chills associated with hoarseness of voice for 1 day. Hospitalist team was consulted for tachycardia. The patient admitted mild headache, with uterine contraction and mild fluid leakage but denied any lightheadedness, chest pain, abdominal pain, and changes in bowel or bladder habit or leg swelling. She is currently 7 para 5 at 36 weeks of gestation. In the ED her vitals were significant for temperature 101.9, heart rate 214, RR 19, blood pressure 104/58. During my evaluation her vitals were significant for blood pressure 101/55, heart rate 113 and temperature 99.1. Labs were significant for hemoglobin 8.8, hematocrit 27.3, RDW 46, coag panel WNL, blood gas WNL, chemistry panel fairly stable and UA revealed rare bacteria but no urinary symptoms. Serology was positive for influenza B. Chest x-ray revealed mild vascular congestion, but was negative for pneumonia In the ED, maternal sepsis alert was called and she received 2 L of IV LR, acetaminophen thousand Mg IV x 1, gentamicin and clindamycin, oseltamivir 75 Mg twice daily and admitted to the hospital. PMH: As mentioned above SHX: Unremarkable Social history: Denies any alcohol, smoking or drug abuse Medications: Acetaminophen 500 Mg as needed for fever, and vitamin Allergies: [place]; throat swelling and gets a rash, penicillin swelling of lip/tongue/throat cc:: cc: Prateek Harmon MD Review of Systems Review of Systems Systems Reviewed: All systems reviewed, normal except as documented Exam Vital Signs Temp Pulse Resp BP Pulse Ox 100.9 F H 115 H 20 106/58 L 98 11/22/24 00:40 11/22/24 01:04 11/22/24 00:06 11/22/24 01:04 11/22/24 01:03 Narrative Exam General: No acute distress. Alert and Oriented x 3. HEENT: Moist mucous membranes, oropharynx sunny.ar Neck: Supple, No masses, No JVD. CVS: Tachycardic, No murmurs, rubs or gallops. Lungs: Clear to auscultation with no accessory use, no wheeze no rhonchi. Abd: Soft, NT/ND, +BS, no organomegaly, distended lower abdomen. Ext: No edema, warm and well perfused. Skin: No rash. Psych: Tired appearing. Results Labs 11/21/24 20:21 11/22/24 00:18 Labs: Short CBC 11/21/24 Range/Units 20:21 WBC 5.3 (3.6-11.0) Thou/mm3 Hgb 8.8 L (12.0-16.0) g/dL Hct 27.3 L (36.0-46.0) % Plt Count 161 D (140-440) Thou/mm3 BMP 11/21/24 20:21 Sodium 138 Potassium 3.1 L Chloride 106 Carbon Dioxide 19.9 L BUN 6 L Creatinine 0.5 L Glucose 75 Calcium 8.5 Cardiac Enzymes 11/21/24 Range/Units 20:21 Troponin I < 0.002 (0.0-0.045) ng/mL Liver Function 11/21/24 Range/Units 20:21 Total Bilirubin 0.4 (0.3-1.2) mg/dL AST 21 (0-34) U/L ALT 19 (10-49) U/L Alkaline Phosphatase 105 (46-116) U/L Albumin 3.0 L (3.5-5.0) gm/dL Urine 11/21/24 Range/Units 19:50 Urine Color Yellow (Lt Yel-Yel) Urine Clarity Clear (Clear/Hazy) Urine pH 7.0 (5.0-7.0) Ur Specific [place] 1.014 (1.001-1.035) Urine Protein Negative (Neg - Trace) Urine Glucose (UA) Negative (Negative) ABG Interpretation ABG results: 11/21/24 20:16 ABG pH 7.44 ABG pCO2 32 ABG pO2 97 ABG HCO3 22 ABG O2 Saturation 99 H ABG Base Excess -2 Quality Measures Quality Measures VTE prophylaxis Medications Home Medications and Allergies Home Medications ?Medication ?Instructions ?Recorded ?Confirmed ?Type acetaminophen 500 mg tablet 500 mg PO Q6H PRN fever or pain 11/21/24 11/21/24 History vit no.95-ferrous 1 tab PO DAILY 11/21/2406/07 History fumarate 28 mg-folic acid 800 mcg tablet () Allergies Allergy/AdvReac Type Severity Reaction Status Date / Time almond Allergy Severe throat Verified 11/21/24 20:03 swells and gets a rash Penicillins Allergy Severe Swelling Verified 11/21/24 20:03 of Lip/Tongue/Throat Visit Medications Acetaminophen (Acetaminophen 325 Mg Tablet) 650 mg PO Q6HR PRN PRN Reason: FEVER >101 Stop: 12/21/24 19:56 Last Admin: 11/22/24 00:40 Dose: 650 mg Dextrose (Dextrose 50%-Water Inj 50 Ml Syringe) 25 ml IV Q15MIN PRN PRN Reason: BG 50-70 responsive npo pt Stop: 12/21/24 20:21 Dextrose (Dextrose 50%-Water Inj 50 Ml Syringe) 50 ml IV Q15MIN PRN PRN Reason: BG <50 OR BG <70 & pt unresponsive Stop: 12/21/24 20:21 Glucagon (Glucagon Inj 1 Mg Vial) 1 mg IM Q15MIN PRN PRN Reason: BG <70, and no IV access Lactated Ringer's (Lactated Ringers) 1,000 mls @ 100 mls/hr IV .Q10H SOFIA Stop: 12/21/24 21:48 Last Admin: 11/21/24 22:19 Dose: 100 mls/hr Magnesium Sulfate (Magnesium Sulfate Ivpb) 2 gm in 50 mls @ 25 mls/hr IV X1 ONE Stop: 11/22/24 01:56 Last Admin: 11/22/24 00:26 Dose: 25 mls/hr Oseltamivir Phosphate (Oseltamivir 75 Mg Capsule) 75 mg PO BID SOFIA Stop: 11/28/24 20:59 Last Admin: 11/21/24 22:16 Dose: 75 mg Discontinued Medications Lactated Ringer's (Lactated Ringers) 1,000 mls @ 999 mls/hr IV .Q1H1M ONE Stop: 11/21/24 18:25 Last Admin: 11/21/24 17:35 Dose: 999 mls/hr Lactated Ringer's (Lactated Ringers) 1,000 mls @ 999 mls/hr IV .Q1H1M ONE Stop: 11/21/24 19:30 Last Admin: 11/21/24 18:38 Dose: 999 mls/hr Acetaminophen (Ofirmev Inj) 1,000 mg in 100 mls @ 250 mls/hr IV NOW ONE Stop: 11/21/24 18:54 Last Admin: 11/21/24 18:42 Dose: 250 mls/hr Clindamycin Phosphate 900 mg/ (IV Miscellaneous Supplies) 50 mls @ 50 mls/hr IV Q8HR SOFIA Stop: 11/28/24 21:59 Last Admin: 11/21/24 21:27 Dose: 50 mls/hr Gentamicin Sulfate 300 mg/ (Sodium Chloride) 107.5 mls @ 107.5 mls/hr IV X1 ONE Stop: 11/21/24 21:14 Last Admin: 11/21/24 20:33 Dose: 107.5 mls/hr Dextrose/Lactated Ringer's (D5-Lr) 1,000 mls @ 125 mls/hr IV .Q8H SOFIA Stop: 12/21/24 19:59 Last Admin: 11/21/24 20:30 Dose: 125 mls/hr Pharmacy Consult (Pharmacy To Dose Gentamicin) 1 each IV QDAY SOFIA Stop: 12/21/24 19:59 Last Admin: 11/21/24 21:26 Dose: Not Given Potassium Chloride (Potassium Chloride 20 Meq Tabcr) 20 meq PO X1 ONE Stop: 11/21/24 21:23 Last Admin: 11/21/24 22:15 Dose: 20 meq Potassium Chloride (Potassium Chloride 20 Meq Tabcr) 40 meq PO X1 ONE Stop: 11/21/24 23:58 Last Admin: 11/22/24 00:40 Dose: 40 meq Assessment & Plan Plan The patient is a 29-year-old female with significant past medical history of remote asthma presented to ED with chief complaint of cough, SOB, chills associated with hoarseness of voice for 1 day. Hospitalist team was consulted for tachycardia is admitted to hospital for further management of maternal sepsis secondary to influenza B. Hospitalist team was consulted for sinus tachycardia. #Sinus tachycardia 2/2 #Sepsis 2/2 influenza B Met 2/4 SIRS criteria with tachycardia and fever of 101.9 Positive for influenza B Chest x-ray negative for pneumonia Patient received 2 L of IV LR, acetaminophen 1000 Mg IV x 1, gentamicin and clindamycin including oseltamivir 75 Mg in the ED - Continue on IV maintenance LR fluid 100 cc/h - Continue with oseltamivir 75 Mg twice daily - Blood, urine and vaginal swab culture ordered - Daily a.m. labs for CBC, CMP and electrolytes #Hypokalemia Patient presented with potassium of 3.1 - Given 20 MEQ p.o. x 1 and 40 mEq p.o. x 1 of KCl - Ordered magnesium 2 g IV x 1 # 7 para 5 at 36-week of gestation - Management deferred to primary HOME COMFORT ADVISOR team Thank you for the opportunity to participate in this patient care. The patient's management plan was discussed with my attending physician MD Ryan Ghosh MD, PGY2 Attending Provider Attestation/Addendum Pt was evaluated and plan formulated together with the housestaff team. I have reviewed the residents note above and agree with most of its content. Please refer to the residents note for additional details. Treat flu.
[2024-11-22] VITALS (319 sets, daily range): BP systolic 68–112; BP diastolic 39–74; PULSE 82–226; RESP 16–25; TEMP 36.7–38.4; O2SAT 88–100
[2024-11-22] MEDS: Magnesium Sulfate 2 GM Ivpb 2 GM/50 ML BAG IV (00:26)
[2024-11-22] MEDS: POTASSIUM CHLORIDE 20 mEq TABCR 40 MEQ PO (00:40)
[2024-11-22] MEDS: ACETAMINOPHEN 325 MG TABLET 650 MG PO (00:40)
[2024-11-22 01:04] LABS: Anion Gap 8 (7-16); BUN/Creatinine Ratio 8 Ratio (12-20); Blood Urea Nitrogen < 5 mg/dL (9-23); Calcium 7.9 mg/dL (8.3-10.6); Carbon Dioxide 24.6 mMol/L (20.0-31.0); Chloride 108 mMol/L (98-107); Creatinine (Component) 0.6 mg/dL (0.6-1.3); Estimated Creatinine Clearance 114.7 mL/min (>60); Glucose 122 mg/dL (74-106); Magnesium 1.7 mg/dL (1.6-2.6); Osmolality,Calculated 279 (275-295); Potassium 3.5 mMol/L (3.4-5.1); Sodium 141 mMol/L (136-145); eGFR > 60 See Note
[2024-11-22 05:13] LABS: Gentamicin, Random < 0.5 mcg/mL (4.0-10.0)
[2024-11-22 07:59] LABS: Basophils % (Auto) 0 % (0-2.5); Eosinophils % (Auto) 0 % (0-10); Hematocrit 28.1 % (36.0-46.0); Hemoglobin 9.2 g/dL (12.0-16.0); Immature Granulocytes % (Auto) 0 % (0-0); Immature Granulocytes Auto 0.02 Thou/mm3 (0.00-0.00); Lymphocytes # (Auto) 0.7 Thou/mm3 (1.0-4.8); Lymphocytes % (Auto) 12 % (10-50); Mean Corpuscular HGB Conc 32.7 g/dl (31.0-37.0); Mean Corpuscular Hemoglobin 26.8 pg (25.0-35.0); Mean Corpuscular Volume 82 fL (80-100); Monocytes # (Auto) 0.8 Thou/mm3 (0.0-0.8); Monocytes % (Auto) 13 % (0-12); Neutrophils # (Auto) 4.3 Thou/mm3 (1.8-7.7); Neutrophils % (Auto) 74 % (37-80); Nucleated Red Blood Cell % 0 /100 WBC (0); Platelet Count 172 Thou/mm3 (140-440); RDW Standard Deviation 47.1 fL (36.4-46.3); Red Blood Count 3.43 Miln/mm3 (4.00-5.20); White Blood Count 5.8 Thou/mm3 (3.6-11.0)
--- NOTE | 2024-11-22 08:00 | XR_ITS ---
Examination: age Limited Technique: Limited transabdominal sonographic images pelvis Exam date and time: November 22, 2024 0909 hrs. Indications: History low amniotic fluid November 21, 2024 4.9 cm Findings: Amniotic fluid index 7.2 cm Cardiac motion 148 BPM Impression: Amniotic fluid index 7.2 cm
[2024-11-22 09:07] LABS: Alanine Aminotransferase 18 U/L (10-49); Albumin, Serum 3.3 gm/dL (3.5-5.0); Albumin/Globulin Ratio 1.2 (1.2-2.2); Alkaline Phosphatase 117 U/L (46-116); Anion Gap 7 (7-16); Aspartate Amino Transferase 21 U/L (0-34); BUN/Creatinine Ratio 12 Ratio (12-20); Bilirubin,Total 0.4 mg/dL (0.3-1.2); Blood Urea Nitrogen 6 mg/dL (9-23); Calcium 7.7 mg/dL (8.3-10.6); Calcium (Corrected) 8.3 mg/dL (8.5-10.1); Carbon Dioxide 22.7 mMol/L (20.0-31.0); Chloride 110 mMol/L (98-107); Creatinine (Component) 0.5 mg/dL (0.6-1.3); Estimated Creatinine Clearance 137.6 mL/min (>60); Globulin 2.7 gm/dL (2.3-3.5); Glucose 86 mg/dL (74-106); Osmolality,Calculated 276 (275-295); Potassium 4.1 mMol/L (3.4-5.1); Sodium 140 mMol/L (136-145); eGFR > 60 See Note
[2024-11-22] MEDS: OSELTAMIVIR 75 MG CAPSULE PO ×2 (09:08→20:36)
[2024-11-22] MEDS: ACETAMINOPHEN IVPB 1,000 MG/100 ML VIAL 250 MG IV (10:50)
--- NOTE | 2024-11-22 12:24 | PRELIM_ITS ---
Limited obstetric ultrasound for AFB calculation. November 22, 2024 0900 hours Clinical history: check DONY level. Comparison: No prior study is available for comparison at the time of interpretation Findings and impression: There is adequate amniotic fluid volume (DONY=7.2 cm). heart rate = 148 bpm. Report Electronically Signed By: Darian Serrano 11/22/2024 12:24:07 PM [EST]
--- NOTE | 2024-11-22 13:21 | PC.NURSE ---
labile BPs noted, 500 cc bolus started, Dr. Curran notified and aware
--- NOTE | 2024-11-22 14:24 | ESPR_ITS ---
Documentation for date of: 11/22/24 CAT DRIVER Subjective Subjective Interval history: Luz Maria is feeling slightly improved since admission last night. Her biggest complaint today is throat pain from coughing. She was initially asleep when I came to see her. Baby is moving well. She feels occasional ctx, but no pattern or pain. No LOF or vaginal bleeding. No fevers/chills since the middle of the night. Exam Vital Signs Temp Pulse Resp BP Pulse Ox 98.3 F 87 16 87/56 L 97 11/22/24 12:04 11/22/24 14:17 11/22/24 12:04 11/22/24 14:17 11/22/24 14:21 Narrative Exam General: well developed, well nourished, no acute distress, conversant Cardiac: normal heart rate Lungs: breathing without distress Abdomen: soft, gravid, non-tender, no rebound or guarding Extremities: no pain with palpation of calves Urinary Catheter Management Cath placed during this visit: no CAT DRIVER - PN: Obj Data Labs 11/22/24 06:40 11/22/24 07:55 Labs: Laboratory Results - last 24 hr 11/21/24 11/21/24 11/21/24 16:57 17:42 19:50 WBC RBC Hgb Hct MCV MCH MCHC RDW Std Deviation Plt Count Neut % (Auto) Lymph % (Auto) [place] % (Auto) Eos % (Auto) Baso % (Auto) Neut # (Auto) Lymph # (Auto) [place] # (Auto) Eos # (Auto) Baso # (Auto) Immature Gran # (Auto) Absolute Nucleated RBC Immature Gran % Nucleated RBC % PT INR APTT Puncture Site ABG pH ABG pCO2 ABG pO2 ABG HCO3 ABG O2 Saturation ABG Base Excess FiO2 Sodium Potassium Chloride Carbon Dioxide Anion Gap BUN Creatinine Estim Creat Clear Calc eGFR BUN/Creatinine Ratio Glucose Calculated Osmolality Lactic Acid Calcium Corrected Calcium Phosphorus Magnesium Total Bilirubin AST ALT Alkaline Phosphatase Troponin I Total Protein Albumin Globulin Albumin/Globulin Ratio Procalcitonin Ur Collection Type Clean Catch Urine Color Yellow Urine Clarity Clear Urine pH 7.0 Ur Specific [place] 1.014 Urine Protein Negative Urine Glucose (UA) Negative Urine Ketones 1+ A Urine Blood Negative Urine Nitrite Negative Urine Bilirubin Negative Urine Urobilinogen (Auto) Negative Ur Leukocyte Esterase Negative Urine RBC 3 Urine WBC 3 Ur Squamous Epith Cells 2 Urine Bacteria Rare Membrane Rupture Negative Random Gentamicin Influenza A (Rapid) Negative Influenza B (Rapid) Positive A SARS-CoV-2 Ag (Rapid) Negative 11/21/24 11/21/24 11/22/24 20:16 20:21 00:18 WBC 5.3 RBC 3.32 L Hgb 8.8 L Hct 27.3 L MCV 82 MCH 26.5 MCHC 32.2 RDW Std Deviation 46.4 H Plt Count 161 D Neut % (Auto) 75 Lymph % (Auto) 11 [place] % (Auto) 12 Eos % (Auto) 0 Baso % (Auto) 0 Neut # (Auto) 4.0 Lymph # (Auto) 0.[address] [place] # (Auto) 0.7 Eos # (Auto) 0.0 Baso # (Auto) 0.0 Immature Gran # (Auto) 0.05 H Absolute Nucleated RBC 0.00 Immature Gran % 1 H Nucleated RBC % 0 PT 10.8 INR 1.0 APTT 28.5 Puncture Site Left Radial ABG pH 7.44 ABG pCO2 32 ABG pO2 97 ABG HCO3 22 ABG O2 Saturation 99 H ABG Base Excess -2 FiO2 21 Sodium 138 141 Potassium 3.1 L 3.5 Chloride 106 108 H Carbon Dioxide 19.9 L 24.6 Anion Gap 12 8 BUN 6 L < 5 L Creatinine 0.5 L 0.6 Estim Creat Clear Calc 137.6 114.7 eGFR > 60 > 60 BUN/Creatinine Ratio 12 8 L Glucose 75 122 H D Calculated Osmolality 272 L 279 Lactic Acid 1.3 Calcium 8.5 7.9 L Corrected Calcium 9.3 Phosphorus 3.0 Magnesium 1.7 Total Bilirubin 0.4 AST 21 ALT 19 Alkaline Phosphatase 105 Troponin I < 0.002 Total Protein 5.7 Albumin 3.0 L Globulin 2.7 Albumin/Globulin Ratio 1.1 L Procalcitonin 0.07 Ur Collection Type Urine Color Urine Clarity Urine pH Ur Specific [place] Urine Protein Urine Glucose (UA) Urine Ketones Urine Blood Urine Nitrite Urine Bilirubin Urine Urobilinogen (Auto) Ur Leukocyte Esterase Urine RBC Urine WBC Ur Squamous Epith Cells Urine Bacteria Membrane Rupture Random Gentamicin Influenza A (Rapid) Influenza B (Rapid) SARS-CoV-2 Ag (Rapid) 11/22/24 11/22/24 11/22/24 04:30 06:40 07:55 WBC 5.8 RBC 3.43 L Hgb 9.2 L Hct 28.1 L MCV 82 MCH 26.8 MCHC 32.7 RDW Std Deviation 47.1 H Plt Count 172 Neut % (Auto) 74 Lymph % (Auto) 12 [place] % (Auto) 13 H Eos % (Auto) 0 Baso % (Auto) 0 Neut # (Auto) 4.3 Lymph # (Auto) 0.[address] [place] # (Auto) 0.8 Eos # (Auto) 0.0 Baso # (Auto) 0.0 Immature Gran # (Auto) 0.02 H Absolute Nucleated RBC 0.00 Immature Gran % 0 Nucleated RBC % 0 PT INR APTT Puncture Site ABG pH ABG pCO2 ABG pO2 ABG HCO3 ABG O2 Saturation ABG Base Excess FiO2 Sodium Cancelled 140 Potassium Cancelled 4.1 D Chloride Cancelled 110 H Carbon Dioxide Cancelled 22.7 Anion Gap Cancelled 7 BUN Cancelled 6 L Creatinine Cancelled 0.5 L Estim Creat Clear Calc Cancelled 137.6 eGFR Cancelled > 60 BUN/Creatinine Ratio Cancelled 12 Glucose Cancelled 86 Calculated Osmolality Cancelled 276 Lactic Acid Calcium Cancelled 7.7 L Corrected Calcium Cancelled 8.3 L Phosphorus Magnesium Total Bilirubin Cancelled 0.4 AST Cancelled 21 ALT Cancelled 18 Alkaline Phosphatase Cancelled 117 H Troponin I Total Protein Cancelled 6.0 Albumin Cancelled 3.3 L Globulin Cancelled 2.7 Albumin/Globulin Ratio Cancelled 1.2 Procalcitonin Ur Collection Type Urine Color Urine Clarity Urine pH Ur Specific [place] Urine Protein Urine Glucose (UA) Urine Ketones Urine Blood Urine Nitrite Urine Bilirubin Urine Urobilinogen (Auto) Ur Leukocyte Esterase Urine RBC Urine WBC Ur Squamous Epith Cells Urine Bacteria Membrane Rupture Random Gentamicin < 0.5 L Influenza A (Rapid) Influenza B (Rapid) SARS-CoV-2 Ag (Rapid) ABG Interpretation ABG results: 11/21/24 20:16 ABG pH 7.44 ABG pCO2 32 ABG pO2 97 ABG HCO3 22 ABG O2 Saturation 99 H ABG Base Excess -2 CAT DRIVER - A/P Assessment and plan (1) Influenza B: Status: Acute Assessment and plan: Luz Maria is a 29yo with SIUP @36wk with Influenza B, having fevers and cough/congestion. When in triage a sepsis code was triggered for maternal fever and tachycardia (also had tachycardia 180's), and at that time IM was consulted and they are following along. She is receiving Tamiflu. CXR wnl. WBC 5.8. After IVF and tylenol, tachycardia resolved as well as maternal fever and tachycardia. She has had a couple fluid boluses today for asyptomatic hypotension (bp as low as 60's/40's), and received D5LR last night for hypoglycemia (fsg 61). Initial ultrasound showed oligohydramnios DONY 4.9cm last night. Resolved on repeat DONY 7.2cm. Amnisure was negative. Cat I FHRT. Plan: -Continue observation given episodes of hypotension -Continue Tamiflu -Continue tylenol prn -Rx cepacol spray and tessalon pearles for cough and sore throat since those are the sx bothering her most -NST q6hr -Regular diet and encourage oral hydration -Continue maintenance IVF -Continue PNV, ferrous sulfate for anemia Time Spent With Patient Time: Total time spent is greater than 50% in coordination of care (as documented) at patient's floor/unit and/or counseling patient: Time with patient: 25 - 35 minutes
[2024-11-22] MEDS: BENZONATATE 100 MG CAPSULE 200 MG PO (15:15)
--- NOTE | 2024-11-22 15:34 | ESPR_ITS ---
Documentation for date of: 11/22/24 Subjective Subjective Interval history: Hospitalist team is consults overnight. Patient seen and examined at bedside this morning patient remains mildly tachycardic and fluids are ordered patient has remained afebrile for the past 3 hours will continue to monitor. Patient is influenza B positive therefore Tamiflu is ordered. Patient denies shortness of breath chest pain or abdominal pain she states that she went to a market where she was exposed to many people however she does not recall being around anyone sick recently. Patient denies those will be doing or headaches. Will continue to monitor patient's heart rate and temperatures. Exam Vital Signs Temp Pulse Resp BP Pulse Ox 98.3 F 85 16 91/54 L 98 11/22/24 12:04 11/22/24 15:05 11/22/24 12:04 11/22/24 15:05 11/22/24 15:29 Narrative Exam GENERAL: A&Ox3 . Awake, Not in acute distress NEURO: no focal neurological deficits HEENT: Atraumatic, Normocephalic. mucous membranes moist. Eyes open, symmetrical, & clear HEART: Normal Heart Sounds LUNGS: Clear to auscultation with no wheezing or crackles. ABDOMEN: pt is 36 weeks , abdomen is consistent with SKIN: No Rash or ecchymoses EXTREMITIES: No edema, tenderness, able to move all 4 extremities, pedal pulses palpated Objective Labs 11/23/24 06:36 11/23/24 06:36 Labs: Laboratory Results - last 24 hr 11/21/24 11/21/24 11/21/24 16:57 17:42 19:50 WBC RBC Hgb Hct MCV MCH MCHC RDW Std Deviation Plt Count Neut % (Auto) Lymph % (Auto) [place] % (Auto) Eos % (Auto) Baso % (Auto) Neut # (Auto) Lymph # (Auto) [place] # (Auto) Eos # (Auto) Baso # (Auto) Immature Gran # (Auto) Absolute Nucleated RBC Immature Gran % Nucleated RBC % PT INR APTT Puncture Site ABG pH ABG pCO2 ABG pO2 ABG HCO3 ABG O2 Saturation ABG Base Excess FiO2 Sodium Potassium Chloride Carbon Dioxide Anion Gap BUN Creatinine Estim Creat Clear Calc eGFR BUN/Creatinine Ratio Glucose Calculated Osmolality Lactic Acid Calcium Corrected Calcium Phosphorus Magnesium Total Bilirubin AST ALT Alkaline Phosphatase Troponin I Total Protein Albumin Globulin Albumin/Globulin Ratio Procalcitonin Ur Collection Type Clean Catch Urine Color Yellow Urine Clarity Clear Urine pH 7.0 Ur Specific [place] 1.014 Urine Protein Negative Urine Glucose (UA) Negative Urine Ketones 1+ A Urine Blood Negative Urine Nitrite Negative Urine Bilirubin Negative Urine Urobilinogen (Auto) Negative Ur Leukocyte Esterase Negative Urine RBC 3 Urine WBC 3 Ur Squamous Epith Cells 2 Urine Bacteria Rare Membrane Rupture Negative Random Gentamicin Influenza A (Rapid) Negative Influenza B (Rapid) Positive A SARS-CoV-2 Ag (Rapid) Negative 11/21/24 11/21/24 11/22/24 20:16 20:21 00:18 WBC 5.3 RBC 3.32 L Hgb 8.8 L Hct 27.3 L MCV 82 MCH 26.5 MCHC 32.2 RDW Std Deviation 46.4 H Plt Count 161 D Neut % (Auto) 75 Lymph % (Auto) 11 [place] % (Auto) 12 Eos % (Auto) 0 Baso % (Auto) 0 Neut # (Auto) 4.0 Lymph # (Auto) 0.6 L [place] # (Auto) 0.7 Eos # (Auto) 0.0 Baso # (Auto) 0.0 Immature Gran # (Auto) 0.05 H Absolute Nucleated RBC 0.00 Immature Gran % 1 H Nucleated RBC % 0 PT 10.8 INR 1.0 APTT 28.5 Puncture Site Left Radial ABG pH 7.44 ABG pCO2 32 ABG pO2 97 ABG HCO3 22 ABG O2 Saturation 99 H ABG Base Excess -2 FiO2 21 Sodium 138 141 Potassium 3.1 L 3.5 Chloride 106 108 H Carbon Dioxide 19.9 L 24.6 Anion Gap 12 8 BUN 6 L < 5 L Creatinine 0.5 L 0.6 Estim Creat Clear Calc 137.6 114.7 eGFR > 60 > 60 BUN/Creatinine Ratio 12 8 L Glucose 75 122 H D Calculated Osmolality 272 L 279 Lactic Acid 1.3 Calcium 8.5 7.9 L Corrected Calcium 9.3 Phosphorus 3.0 Magnesium 1.7 Total Bilirubin 0.4 AST 21 ALT 19 Alkaline Phosphatase 105 Troponin I < 0.002 Total Protein 5.7 Albumin 3.0 L Globulin 2.7 Albumin/Globulin Ratio 1.1 L Procalcitonin 0.07 Ur Collection Type Urine Color Urine Clarity Urine pH Ur Specific [place] Urine Protein Urine Glucose (UA) Urine Ketones Urine Blood Urine Nitrite Urine Bilirubin Urine Urobilinogen (Auto) Ur Leukocyte Esterase Urine RBC Urine WBC Ur Squamous Epith Cells Urine Bacteria Membrane Rupture Random Gentamicin Influenza A (Rapid) Influenza B (Rapid) SARS-CoV-2 Ag (Rapid) 11/22/24 11/22/24 11/22/24 04:30 06:40 07:55 WBC 5.8 RBC 3.43 L Hgb 9.2 L Hct 28.1 L MCV 82 MCH 26.8 MCHC 32.7 RDW Std Deviation 47.1 H Plt Count 172 Neut % (Auto) 74 Lymph % (Auto) 12 [place] % (Auto) 13 H Eos % (Auto) 0 Baso % (Auto) 0 Neut # (Auto) 4.3 Lymph # (Auto) 0.7 L [place] # (Auto) 0.8 Eos # (Auto) 0.0 Baso # (Auto) 0.0 Immature Gran # (Auto) 0.02 H Absolute Nucleated RBC 0.00 Immature Gran % 0 Nucleated RBC % 0 PT INR APTT Puncture Site ABG pH ABG pCO2 ABG pO2 ABG HCO3 ABG O2 Saturation ABG Base Excess FiO2 Sodium Cancelled 140 Potassium Cancelled 4.1 D Chloride Cancelled 110 H Carbon Dioxide Cancelled 22.7 Anion Gap Cancelled 7 BUN Cancelled 6 L Creatinine Cancelled 0.5 L Estim Creat Clear Calc Cancelled 137.6 eGFR Cancelled > 60 BUN/Creatinine Ratio Cancelled 12 Glucose Cancelled 86 Calculated Osmolality Cancelled 276 Lactic Acid Calcium Cancelled 7.7 L Corrected Calcium Cancelled 8.3 L Phosphorus Magnesium Total Bilirubin Cancelled 0.4 AST Cancelled 21 ALT Cancelled 18 Alkaline Phosphatase Cancelled 117 H Troponin I Total Protein Cancelled 6.0 Albumin Cancelled 3.3 L Globulin Cancelled 2.7 Albumin/Globulin Ratio Cancelled 1.2 Procalcitonin Ur Collection Type Urine Color Urine Clarity Urine pH Ur Specific [place] Urine Protein Urine Glucose (UA) Urine Ketones Urine Blood Urine Nitrite Urine Bilirubin Urine Urobilinogen (Auto) Ur Leukocyte Esterase Urine RBC Urine WBC Ur Squamous Epith Cells Urine Bacteria Membrane Rupture Random Gentamicin < 0.5 L Influenza A (Rapid) Influenza B (Rapid) SARS-CoV-2 Ag (Rapid) ABG Interpretation ABG results: 11/21/24 20:16 ABG pH 7.44 ABG pCO2 32 ABG pO2 97 ABG HCO3 22 ABG O2 Saturation 99 H ABG Base Excess -2 Quality Measures Quality Measures VTE prophylaxis Assessment & Plan Assessment Current Active Medications: Generic Name Dose Route Start Last Admin Trade Name Freq PRN Reason Stop Dose Admin Acetaminophen 500 mg 11/22/24 15:23 Acetaminophen 500 Mg Tablet PO 12/22/24 15:22 Q6H PRN fever or pain Benzonatate 200 mg 11/22/24 14:21 11/22/24 15:15 Benzonatate 100 Mg Capsule PO 12/22/24 14:20 200 mg Q8HR PRN Administration COUGH Protocol Dextrose 25 ml 11/21/24 20:22 Dextrose 50%-Water Inj 50 Ml Syringe IV 12/21/24 20:21 Q15MIN PRN BG 50-70 responsive npo pt Dextrose 50 ml 11/21/24 20:22 Dextrose 50%-Water Inj 50 Ml Syringe IV 12/21/24 20:21 Q15MIN PRN BG <50 OR BG <70 & pt unresponsive Ferrous Sulfate 325 mg 11/22/24 14:45 Ferrous Sulf 325 Mg Tablet PO 12/22/24 14:44 BID SOFIA Glucagon 1 mg 11/21/24 20:22 Glucagon Inj 1 Mg Vial IM Q15MIN PRN BG <70, and no IV access Lactated Ringer's 1,000 mls @ 100 mls/hr 11/21/24 21:49 11/22/24 10:51 Lactated Ringers IV 12/21/24 21:48 Infused .Q10H SOFIA Infusion Acetaminophen 1,000 mg in 100 mls @ 250 mls/hr 11/22/24 02:00 11/22/24 10:50 Ofirmev Inj IV 11/23/24 02:23 250 mls/hr Q8H PRN Administration FEVER Oseltamivir Phosphate 75 mg 11/21/24 21:00 11/22/24 09:08 Oseltamivir 75 Mg Capsule PO 11/28/24 20:59 75 mg BID SOFIA Administration Phenol/Menthol 0 ml 11/22/24 14:15 Phenol/Na Phenolate (Chloraseptic) [place] 180 Ml Btl PO 12/22/24 14:14 Q6HR PRN SORE THROAT Multivit/Folic Acid/Iron 1 tab 11/22/24 14:45 Vitamin/Fe Fum/Fa Tablet PO 12/22/24 14:44 QDAY SOFIA Plan The patient is a 29-year-old female with significant past medical history of remote asthma presented to ED with chief complaint of cough, SOB, chills associated with hoarseness of voice for 1 day. Hospitalist team was consulted for tachycardia is admitted to hospital for further management of maternal sepsis secondary to influenza B. Hospitalist team was consulted for sinus tachycardia. #Sinus tachycardia 2/2 #Sepsis 2/2 influenza B Met 2/4 SIRS criteria with tachycardia and fever of 101.9 Positive for influenza B Chest x-ray negative for pneumonia Patient received 2 L of IV LR, acetaminophen 1000 Mg IV x 1, gentamicin and clindamycin including oseltamivir 75 Mg in the ED - Continue on IV maintenance LR fluid 100 cc/h - Continue with oseltamivir 75 Mg twice daily - Blood, urine and vaginal swab culture ordered - Daily a.m. labs for CBC, CMP and electrolytes #Hypokalemia- improved Patient presented with potassium of 3.1 - Given 20 MEQ p.o. x 1 and 40 mEq p.o. x 1 of KCl - Ordered magnesium 2 g IV x 1 # 7 para 5 at 36-week of gestation - Management deferred to primary [employer] team Assessment and plan discussed with my senior resident Dr. Aguilar & attending physician Dr. Pan Russell (PGY-1)- Internal medicine resident Attending Provider Attestation/Addendum I attest that I was physically present for the evaluation, physical examination, lab and imaging review of the patient with the residents. I discussed the case with the residents and agree with the findings and plans of care as documented above. Patient is a 29 years old female with remote history of asthma, at 36 weeks of gestation who was admitted for sepsis secondary to flu. Internal medicine consult was obtained overnight for management of the same. At bedside today, patient appears comfortable, states that she felt febrile in the morning but feels well at the time of examination. She continues to be mildly tachycardic but rest of the vitals are within normal limits. Chest x-ray was obtained, which was negative for pneumonia, patient is saturating well on room air. Continues to be on oseltamivir and IV hydration, LR at 100 cc/h. Blood, urine and vaginal swab culture pending. She was also noted to have potassium of 3.1, repleted accordingly. Thank you for the opportunity to participate in the care of this patient. Shobha Perla MD
[2024-11-22] MEDS: FERROUS SULF 325 MG TABLET PO (20:36)
[2024-11-22 23:50] LABS: Basophils % (Auto) 0 % (0-2.5); Eosinophils # (Auto) 0.1 Thou/mm3 (0.0-0.5); Eosinophils % (Auto) 1 % (0-10); Hematocrit 30.2 % (36.0-46.0); Hemoglobin 9.6 g/dL (12.0-16.0); Immature Granulocytes % (Auto) 1 % (0-0); Immature Granulocytes Auto 0.04 Thou/mm3 (0.00-0.00); Lymphocytes % (Auto) 20 % (10-50); Mean Corpuscular HGB Conc 31.8 g/dl (31.0-37.0); Mean Corpuscular Hemoglobin 26.7 pg (25.0-35.0); Mean Corpuscular Volume 84 fL (80-100); Monocytes # (Auto) 0.6 Thou/mm3 (0.0-0.8); Monocytes % (Auto) 12 % (0-12); Neutrophils # (Auto) 3.2 Thou/mm3 (1.8-7.7); Neutrophils % (Auto) 66 % (37-80); Nucleated Red Blood Cell % 0 /100 WBC (0); Platelet Count 184 Thou/mm3 (140-440); RDW Standard Deviation 47.8 fL (36.4-46.3); Red Blood Count 3.59 Miln/mm3 (4.00-5.20); White Blood Count 4.9 Thou/mm3 (3.6-11.0)
[2024-11-23] VITALS (108 sets, daily range): BP systolic 81–98; BP diastolic 50–57; PULSE 73–113; RESP 18; TEMP 36.6–37.2; O2SAT 91–100
[2024-11-23] MEDS: PHENOL/NA PHENOLATE (Chloraseptic) SPRY 180 ML BTL PO ×2 (02:00→10:40)
[2024-11-23] MEDS: RINGERS LACTATED 1000 ML 1,000 ML 125 ML IV (02:05)
[2024-11-23] MEDS: ACETAMINOPHEN IVPB 1,000 MG/100 ML VIAL 250 MG IV (02:10)
[2024-11-23 07:01] LABS: Basophils % (Auto) 0 % (0-2.5); Eosinophils # (Auto) 0.1 Thou/mm3 (0.0-0.5); Eosinophils % (Auto) 1 % (0-10); Hemoglobin 9.7 g/dL (12.0-16.0); Immature Granulocytes % (Auto) 1 % (0-0); Immature Granulocytes Auto 0.04 Thou/mm3 (0.00-0.00); Lymphocytes # (Auto) 1.3 Thou/mm3 (1.0-4.8); Lymphocytes % (Auto) 24 % (10-50); Mean Corpuscular HGB Conc 31.3 g/dl (31.0-37.0); Mean Corpuscular Hemoglobin 27.2 pg (25.0-35.0); Mean Corpuscular Volume 87 fL (80-100); Monocytes # (Auto) 0.6 Thou/mm3 (0.0-0.8); Monocytes % (Auto) 11 % (0-12); Neutrophils # (Auto) 3.5 Thou/mm3 (1.8-7.7); Neutrophils % (Auto) 63 % (37-80); Nucleated Red Blood Cell % 0 /100 WBC (0); Platelet Count 177 Thou/mm3 (140-440); Red Blood Count 3.57 Miln/mm3 (4.00-5.20); White Blood Count 5.6 Thou/mm3 (3.6-11.0)
[2024-11-23 07:21] LABS: Alanine Aminotransferase 16 U/L (10-49); Albumin, Serum 3.2 gm/dL (3.5-5.0); Albumin/Globulin Ratio 1.2 (1.2-2.2); Alkaline Phosphatase 115 U/L (46-116); Anion Gap 6 (7-16); Aspartate Amino Transferase 19 U/L (0-34); BUN/Creatinine Ratio 14 Ratio (12-20); Bilirubin,Total 0.3 mg/dL (0.3-1.2); Blood Urea Nitrogen 7 mg/dL (9-23); Calcium (Corrected) 8.6 mg/dL (8.5-10.1); Carbon Dioxide 24.8 mMol/L (20.0-31.0); Chloride 110 mMol/L (98-107); Creatinine (Component) 0.5 mg/dL (0.6-1.3); Estimated Creatinine Clearance 157.9 mL/min (>60); Globulin 2.6 gm/dL (2.3-3.5); Glucose 85 mg/dL (74-106); Osmolality,Calculated 278 (275-295); Potassium 3.8 mMol/L (3.4-5.1); Sodium 141 mMol/L (136-145); Total Protein 5.8 gm/dL (5.7-8.2); eGFR > 60 See Note
[2024-11-23] MEDS: FERROUS SULF 325 MG TABLET PO (08:11)
[2024-11-23] MEDS: PRENATAL VITAMIN/FE FUM/FA TABLET 1 TAB PO (08:11)
--- NOTE | 2024-11-23 09:24 | ESDS_ITS ---
DS: Providers Provider Date of admission: 11/22/24 19:42 Primary care physician: Physician No Primary/Family Admitting Provider: Ciara Curran MD Attending Provider on Admission: Ciara Curran MD Consults: 11/21/24 20:56 Consult to Adult Hospitalist Stat Comment: Consulting Provider: Hossein Najera Attending Provider on DC: Nicole Ace MD ([facility]) Discharging Provider: Nicole Ace MD ([facility]) Anticipated date of discharge: 11/23/24 DS: Diagnosis Discharge Diagnosis (1) Influenza B: Status: Acute Assessment & Plan: Afebrile 36 hours. Home on Tylenol, Tamiflu, cough drops. Inhaler refilled. Z-Cody written (2) 36 weeks gestation of : Status: Acute Assessment & Plan: Follow-up with [facility] next week Problem List Completed Was Problem List Reviewed/Reconciled?: Yes Summary/Hosp Course Brief History: The patient is a 29-year-old -0-1-5 at 36 weeks . All care largely uncomplicated with [facility] at [facility]. The patient was admitted November 21, 2024 with fevers and a cough. Influenza B was positive. She has defervesced in the hospital and has been afebrile for greater than 36 hours. She has been observed and had an internal medicine consult. She has been started on Tamiflu. This morning patient still reports a cough. She reports good movement she denies strong contractions she denies vaginal bleeding or loss of fluids. She has mild bodyaches. No sore throat no diarrhea no vomiting. Status at Discharge Functional status at discharge: independent ambulation Overall status at discharge: patient is progressing back to baseline Time Spent with Patient Time attestation: Total time spent providing and/or coordinating discharge services: Time spent: Less than 30 minutes Exam Vital Signs Temp Pulse Resp BP Pulse Ox 98 F 76 18 91/55 L 98 11/23/24 07:20 11/23/24 08:01 11/23/24 07:20 11/23/24 08:01 11/23/24 08:12 Narrative Exam Patient appears tired. She has a nonproductive cough. She is wearing a mask. Routine Respiratory Exam Respiratory: Present lungs clear and normal breath sounds Comments: Nonproductive cough present Routine Abdominal Exam Abdominal: Present soft (Fundus firm at approximately 36 weeks size) Detailed Lower Extremity Exam Comments: No significant edema or erythema of the bilateral lower extremities Discharge Plan Plan Patient Disposition: HOME (Self Care) Disposition Comment: Stable Prescriptions/Referrals Prescriptions/Med Rec: New benzonatate 100 mg Capsule 200 mg PO Q8HR PRN (Reason: Cough) Qty: 30 0RF oseltamivir 75 mg Capsule 75 mg PO BID Qty: 10 0RF azithromycin 250 mg tablet See Rx Instructions .ROUTE .COMPLEX Qty: 6 0RF Rx Instructions: For 250 mg dose pack: take 500 mg today (day 1), then 250 mg for 4 days (days 2-5) albuterol sulfate 90 mcg/actuation HFA aerosol inhaler 1 inh inhalation QID PRN (Reason: shortness of breath or wheezing) Qty: 8.5 0RF Continued acetaminophen 500 mg tablet 500 mg PO Q6H PRN (Reason: fever or pain) No Action PNV [id number]-FA [] 28 mg iron- 800 mcg tablet 1 tab PO DAILY Referrals: No Primary/Family,Physician [Primary Care Provider] - Patient/Caregiver Discharge Instructions Discharge Activity: activity as tolerated Other Discharge Activity Instructions:: Check fever daily. Lots of rest. Other Discharge Diet Instructions: General Diet as tolerated Education Materials: Kick Counts, Recognizing Labor, ED Influenza (Adult) Print Language: Nepali Activity Restrictions/Additional Instructions: Return for high fevers or extreme shortness of breath. labor, loss of fluids, heavy vaginal bleeding or decreased movement. Follow-up with [facility] in the clinic next week. Stand Alone Forms: Malia Award Info., Patient Portal Info Letter Discharge Order Discharge Orders: Discharge (Routine); Ordered 11/23/24 Ordered By: Nicole Ace ([facility]) Planned Discharge Date 11/23/24
[2024-11-23] MEDS: BENZONATATE 100 MG CAPSULE 200 MG PO (10:37)
[2024-11-23] MEDS: OSELTAMIVIR 75 MG CAPSULE PO (10:38)
== END 2024-11-23 10:48 | disposition home or self-care (01) | DRG 566 ==
PROVIDERS: Student in an Organized Health Care Education/Training Program; Admitting Provider Obstetrics & Gynecology; Visit Provider Obstetrics & Gynecology
DX: O99.513 Diseases of the respiratory system complicating pregnancy, third trimester (principal); J10.1 Influenza due to other identified influenza virus with other respiratory manifestations; Z3A.36 36 weeks gestation of pregnancy; O76 Abnormality in fetal heart rate and rhythm complicating labor and delivery; J45.909 Unspecified asthma, uncomplicated; O99.283 Endocrine, nutritional and metabolic diseases complicating pregnancy, third trimester; E87.6 Hypokalemia; E16.2 Hypoglycemia, unspecified; O99.891 Other specified diseases and conditions complicating pregnancy; R00.0 Tachycardia, unspecified; O41.03X0 Oligohydramnios, third trimester, not applicable or unspecified; O99.013 Anemia complicating pregnancy, third trimester
CPT/HCPCS: 36415; 36600; 59899; 71045; 76805; 76815; 76819; 80048; 80053; 80170; 81001; 82803; 83605; 83735; 84100; 84112; 84145; 84484; 85025; 85610; 85730; 87040; 87081; 87086; 87400; 87502; 87811; 93005; 94762; J0131; J1580; J3475; J7050; J7120; J7121; S0077; A9270; J0736

== ENCOUNTER 2024-12-06 08:07 | Inpatient (IN) | payer MEDICAID, SELFPAY ==
[2024-12-06] VITALS (35 sets, daily range): BP systolic 93–196; BP diastolic 52–122; PULSE 80–101; RESP 16–20; TEMP 36.4–37.2; O2SAT 97–100; BMI 26.0
[2024-12-06 09:30] LABS: Basophils % (Auto) 0 % (0-2.5); Eosinophils # (Auto) 0.1 Thou/mm3 (0.0-0.5); Eosinophils % (Auto) 1 % (0-10); Hematocrit 31.5 % (36.0-46.0); Hemoglobin 10.3 g/dL (12.0-16.0); Immature Granulocytes % (Auto) 1 % (0-0); Immature Granulocytes Auto 0.07 Thou/mm3 (0.00-0.00); Lymphocytes # (Auto) 1.4 Thou/mm3 (1.0-4.8); Lymphocytes % (Auto) 17 % (10-50); Mean Corpuscular HGB Conc 32.7 g/dl (31.0-37.0); Mean Corpuscular Hemoglobin 26.5 pg (25.0-35.0); Mean Corpuscular Volume 81 fL (80-100); Monocytes # (Auto) 0.7 Thou/mm3 (0.0-0.8); Monocytes % (Auto) 9 % (0-12); Neutrophils # (Auto) 5.8 Thou/mm3 (1.8-7.7); Neutrophils % (Auto) 72 % (37-80); Nucleated Red Blood Cell % 0 /100 WBC (0); Platelet Count 261 Thou/mm3 (140-440); RDW Standard Deviation 47.3 fL (36.4-46.3); Red Blood Count 3.88 Miln/mm3 (4.00-5.20)
[2024-12-06] MEDS: RINGERS LACTATED 1000 ML 1,000 ML 100 ML IV (09:53)
[2024-12-06 10:22] LABS: Syphilis Nonreactive (Nonreactive)
[2024-12-06] MEDS: fentaNYL CIT INJ 50 mCg/ML AMP 2ML 100 MCG IV (15:35)
[2024-12-06] MEDS: BENZO/LANO/ALOE (Dermoplast) 60 GM CAN 1 SPRAY TOP (15:36)
[2024-12-06] MEDS: IBUPROFEN TAB 400 MG TABLET 800 MG PO (15:36)
[2024-12-06] MEDS: OXYTOCIN in NS 20 units 20 UNIT/1,000 ML BAG 125 UNIT IV ×2 (15:37→16:21)
[2024-12-06] MEDS: METHYLERGONOVINE INJ 0.2 MG/ML VIAL IM (15:37)
--- NOTE | 2024-12-06 17:28 | PD.LDDELS ---
Data ([facility]ap[facility]) Data Hx Section: No Maternal Blood Type: O Pos Rubella Titre: Positive RPR: Non-reactive Labs: Negative: RPR, Hepatitis B, HIV, Chlamydia, Gonorrhea and Group Beta Strep : 7 Para: 5 Term: 5 : 0 Livin : 1 Delivery Data (Tapia) Labor Data Stimulated/Augmented: No Induction: No ROM Date: 12/06/24 ROM Time: 15:05 Rupture Type: SROM Amniotic Fluid: Thin Meconium Delivery Data EDC: 12/19/24 EDC calculated by:: LMP/early US confirmation Labor Onset Stage 1 Date: 12/06/24 Labor Onset Stage 1 Time: 10:24 Labor Onset Stage 2 Date: 12/06/24 Labor Onset Stage 2 Time: 15:19 Delivery Date: 12/06/24 Delivery Time: 15:21 Gestational age (weeks): 38 Gestational age (days): 1 Placenta Delivery Date: 12/06/24 Placenta Delivery Time: 15:25 Length stage 2 (minutes): 10 Length stage 3 (minutes): 5 Delivered by: Nicole Ace Delivery nurse: Olga Cota Director Data Architecture at delivery: No Support person(s) at delivery: FOB Other staff at delivery: 2nd Nurse Other staff at delivery: 2nd Nurse Other staff at delivery: Other staff at delivery: Carolina Rice Other staff at delivery: Perlita Farley Other staff at delivery: Al Delivery Method Delivery: Vaginal Delivery Type: Spontaneous Presentation: Vertex Position: OA Anesthesia Type Primary Anesthesia: None Secondary Anesthesia: None Delivery Room Medications Other Intrapartum Medications: No Post Delivery Medications: Narcotics (Fentanyl given after delivery) and Ergotrate (Methergine IM and an extra bag of Pitocin given after delivery) Placenta Placenta Delivery: Spontaneous Placenta Cultures Obtained: No Placenta Sent for Examination: No Cord Sample: Cord Blood Obtained Episiotomy Episiotomy: None EBL Estimated blood loss (ml): 400 Umbilical Cord Umbilical Vessels: 3 Nuchal Cord: None Body Cord: None Additional Procedures The patient presented to labor and delivery around 4 cm in active labor and progressed without the aid of Pitocin. She ruptured her bag at about 7 to 8 cm. She rapidly progressed to complete over the next 20 minutes and pushed through 2 contractions delivering a liveborn female. Findings liveborn female in the MICHELE presentation with no nuchal cord and with light meconium Apgars were 8 and 9 weight was 6 pounds 2 ounces. The placenta was complete, spontaneous and grossly normal, delivering approximately 3 to 5 minutes after the baby delivered. The patient delivered over an intact perineum. After delivery of the placenta, the patient was found to be bleeding briskly. Her Pitocin was running and a pressure bag was ordered. The patient was given IM Methergine x 1. She requested IV fentanyl and this was given. After vigorous uterine massage and the above interventions, the patient's bleeding was noted to be scant. A second IV bag of Pitocin was ordered for recovery. The patient already had [address] and her predelivery hemoglobin was 10 Complications Complications: None. Both mother and baby were in stable condition in the delivery room [place] Data ([facility]ia) Data Infant Gender: Female Infant Weight Grams: 2780 1 Minute Total: 8 5 Minute Total: 9
--- NOTE | 2024-12-06 17:48 | ESHP_ITS ---
Documentation for date of: 12/06/24 OB Labor/Induct. HPI History of Present Illness Chief complaint: Painful uterine contractions : 6 Term pregnancies: 5 pregnancies: 0 Living children: 5 History of Abortions: Spontaneous and Elective: 1 History of Vaginal deliveries: 5 History of sections: No History of : No Date of last menstrual period: 03/14/24 SMAIR: 12/19/24 Gestational Age (weeks): 38 Gestational Age (days): 1 Gestational age based on last menstrual period: 38 History of present illness: The patient is a 29-year-old -0-1-5 all care [facility] who presented in active labor 4 to 5 cm dilated. All care is up-to-date in the chart. She is group B strep negative. History of Present Dating criteria: LMP confirmed by 1st trimester US Adequate Care: Yes Ultrasounds: normal mid trimester US Obstetrical complications: none Medical complications: none Labs Maternal Blood Type: O Pos Labs: Positive: Rubella Titre and Negative: RPR, Hepatitis B, HIV, Chlamydia, Gonorrhea and Group Beta Strep Past Medical History Surgical History SURGICAL: Negative Section Meds Home Medications and Allergies Home Medications ?Medication ?Instructions ?Recorded ?Confirmed ?Type acetaminophen 500 mg tablet 500 mg PO Q6H PRN fever or pain 11/21/24 11/21/24 History vit no.95-ferrous 1 tab PO DAILY 11/21/24 History fumarate 28 mg-folic acid 800 mcg tablet () ferrous sulfate 325 mg (65 mg mg 12/06/24 History iron) tablet (FeroSul) folic acid 1 mg tablet 12/06/24 History Allergies Allergy/AdvReac Type Severity Reaction Status Date / Time almond Allergy Severe throat Verified 12/06/24 08:45 swells and gets a rash Penicillins Allergy Severe Swelling Verified 12/06/24 08:45 of Lip/Tongue/Throat OB Exam Physical Exam Vital signs: Temp Pulse Resp BP Pulse Ox O2 Del Method 98.2 F 92 18 99/57 L 99 Room Air 12/06/24 16:25 12/06/24 17:14 12/06/24 15:50 12/06/24 17:14 12/06/24 09:08 12/06/24 15:50 Routine Abdominal Exam Abdominal: Present soft Detailed Labor and Delivery Exam Dilation (cm): 4 Effacement (%): 80 Cervix position: mid station: -2 Consistency: medium Presentation: Vertex Membranes: intact Baseline heart rate: 140 monitor accelerations: 15x15 monitor decelerations: None half-way variability: Moderate (11-25) Contraction frequency (min): Every 3 to 4 minutes OB Results Labs 12/06/24 09:05 Labs: Short CBC 12/06/24 Range/Units 09:05 WBC 8.0 (3.6-11.0) Thou/mm3 Hgb 10.3 L (12.0-16.0) g/dL Hct 31.5 L (36.0-46.0) % Plt Count 261 D (140-440) Thou/mm3 OB Assessment & Plan Assessment and Plan (1) Normal labor and delivery: Status: Acute (2) Active labor at term: Status: Acute Assessment and plan: Admit patient. Anticipate normal vaginal delivery. Two IV lines. (3) Grand multiparity in labor and delivery: Status: Acute Assessment and plan: To IV lines. Additional Plan Induction method: none Plan: anticipate NVD Additional Plan Comment: Hemorrhage cart available at delivery
[2024-12-06] MEDS: SODIUM CHLORIDE 0.9% 1000 ML 1,000 ML 999 ML IV (21:16)
--- NOTE | 2024-12-06 21:25 | PC.NURSE ---
PT COMPLAINING OF JOANN NUMBNESS IN ARMS AND LEGS AND DIZZINESS. VS STABLE NO TEMP BS 112. VAGINAL BLEEDING SCANT WITH SMALL TRICKLE UPON DEEP FUNDAL MASSAGE DR ROMAN NOTIFIED. NEW ORDER FOR STAT CBC AND 1L NS.
[2024-12-06 21:32] LABS: Basophils % (Auto) 0 % (0-2.5); Eosinophils % (Auto) 0 % (0-10); Hematocrit 29.8 % (36.0-46.0); Immature Granulocytes % (Auto) 1 % (0-0); Immature Granulocytes Auto 0.11 Thou/mm3 (0.00-0.00); Lymphocytes # (Auto) 1.3 Thou/mm3 (1.0-4.8); Lymphocytes % (Auto) 7 % (10-50); Mean Corpuscular HGB Conc 33.6 g/dl (31.0-37.0); Mean Corpuscular Volume 80 fL (80-100); Monocytes # (Auto) 1.6 Thou/mm3 (0.0-0.8); Monocytes % (Auto) 9 % (0-12); Neutrophils # (Auto) 15.5 Thou/mm3 (1.8-7.7); Neutrophils % (Auto) 83 % (37-80); Nucleated Red Blood Cell % 0 /100 WBC (0); Platelet Count 246 Thou/mm3 (140-440); RDW Standard Deviation 47.1 fL (36.4-46.3); Red Blood Count 3.71 Miln/mm3 (4.00-5.20); White Blood Count 18.6 Thou/mm3 (3.6-11.0)
--- NOTE | 2024-12-06 21:56 | PC.NURSE ---
updated DR Ace on pt status. no new orders given. per pt she dose not feel dizzy any more and numbness is now only in her hands and feet.
[2024-12-07] VITALS: BP 103/68; PULSE 79; RESP 18; TEMP 36.7; O2SAT 99
[2024-12-07 03:30] VITALS: BP 95/66; PULSE 86; RESP 16; TEMP 36.8; O2SAT 98
--- NOTE | 2024-12-07 04:23 | PC.NURSE ---
Per Pt no numbness in extremities at this time and no dizziness. pt ambulated to the restroom with a stable gait.
[2024-12-07 08:00] VITALS: BP 99/60; PULSE 81; RESP 16; TEMP 36.8; O2SAT 98
--- NOTE | 2024-12-07 08:52 | PD.LDPPPRG ---
Subjective Subjective Interval history: Delivery type: Patient doing well this morning. No acute complaints. Ambulating, tolerating p.o. and voiding without difficulty. HTN/Pre-Eclampsia screen: No chest pain, shortness of breath, headache, visual changes, epigastric or right upper quadrant pain. Breast-feeding, lochia diminishing. Bowel: Flatus+/ BM Exam Vital Signs Temp Pulse Resp BP Pulse Ox O2 Del Method 98.2 F 81 16 99/60 98 Room Air 12/07/24 08:00 12/07/24 08:00 12/07/24 08:00 12/07/24 08:00 12/07/24 08:00 12/07/24 08:00 Constitutional Constitutional: no acute distress Routine HEENT Exam Head: Present normocephalic and atraumatic Eye: Present EOMI and PERRL ENT: Present mucous membranes moist Routine Neck Exam Neck: Present supple and trachea midline Routine Respiratory Exam Respiratory: Present chest non-tender, lungs clear, normal breath sounds and no resp distress Routine Cardiovascular Exam Cardiovascular: Present RRR Routine Abdominal Exam Abdominal: Present soft and normoactive bowel sounds Routine Extremities Exam Extremities: Present full ROM Routine Skin Exam Skin: Present intact, dry and warm Routine Neurological Exam Neurological: Present alert, oriented X3 and CN II-XII intact Routine Psychiatric Exam Psychiatric: Present normal affect and normal thought process Objective Labs 12/06/24 21:15 Labs: Laboratory Results - last 24 hr 12/06/24 12/06/24 09:05 21:15 WBC 8.0 18.6 H D RBC 3.88 L 3.71 L Hgb 10.3 L 10.0 L Hct 31.5 L 29.8 L MCV 81 80 MCH 26.5 27.0 MCHC 32.7 33.6 RDW Std Deviation 47.3 H 47.1 H Plt Count 261 D 246 Neut % (Auto) 72 83 H Lymph % (Auto) 17 7 L [place] % (Auto) 9 9 Eos % (Auto) 1 0 Baso % (Auto) 0 0 Neut # (Auto) 5.8 15.5 H Lymph # (Auto) 1.4 1.3 [place] # (Auto) 0.7 1.6 H Eos # (Auto) 0.1 0.0 Baso # (Auto) 0.0 0.0 Immature Gran # (Auto) 0.07 H 0.11 H Absolute Nucleated RBC 0.00 0.00 Immature Gran % 1 H 1 H Nucleated RBC % 0 0 Syphilis Serology Nonreactive Blood Type O Positive Antibody Screen NEGATIVE Blood Bank Wristband ID Yes Assessment & Plan Problem List (1) Normal labor and delivery: Status: Acute (2) Active labor at term: Status: Acute (3) Grand multiparity in labor and delivery: Status: Acute (4) Vaginal delivery: Status: Acute Assessment and plan: 1. Continue routine /post-op care 2. Labs reviewed, cbc appropriate 3. Remove dressing/Simmons 4. Encourage to ambulate, shower 5. Encourage PO intake, breast feeding Time Spent With Patient Time: Total time spent is greater than 50% in coordination of care (as documented) at patient's floor/unit and/or counseling patient:
--- NOTE | 2024-12-07 09:01 | ESDS_ITS ---
DS: Providers Provider Date of admission: 12/06/24 08:42 Primary care physician: Physician No Primary/Family Admitting Provider: Nicole Ace MD ([facility]) Attending Provider on Admission: Javy Murcia MD Consults: 12/06/24 16:10 Referral Routine Comment: Attending Provider on DC: Javy Murcia MD Discharging Provider: Javy Murcia MD DS: Diagnosis Discharge Diagnosis (1) Vaginal delivery: Status: Acute Problem List Completed Was Problem List Reviewed/Reconciled?: Yes Summary/Hosp Course Brief History: The patient is a 29-year-old -0-1-5 all care [facility] who presented in active labor 4 to 5 cm dilated. All care is up-to-date in the chart. She is group B strep negative. Time Spent with Patient Time attestation: Total time spent providing and/or coordinating discharge services: Exam Vital Signs Temp Pulse Resp BP Pulse Ox O2 Del Method 98.2 F 81 16 99/60 98 Room Air 12/07/24 08:00 12/07/24 08:00 12/07/24 08:00 12/07/24 08:00 12/07/24 08:00 12/07/24 08:00 Discharge Plan Plan Patient Disposition: HOME (Self Care) Patient condition on transfer: Stable Prescriptions/Referrals Prescriptions/Med Rec: New ibuprofen 400 mg Tablet 800 mg PO Q8H PRN (Reason: See Comments) 10 Days Qty: 40 0RF docusate sodium [Stool Softener] 100 mg capsule 100 mg PO QDAY 30 Days Qty: 30 0RF Continued acetaminophen 500 mg tablet 500 mg PO Q6H PRN (Reason: fever or pain) PNV cmb#95-ferrous fumarate-FA [] 28 mg iron- 800 mcg tablet 1 tab PO DAILY benzonatate 100 mg Capsule 200 mg PO Q8HR PRN (Reason: Cough) Qty: 30 0RF oseltamivir 75 mg Capsule 75 mg PO BID Qty: 10 0RF azithromycin 250 mg tablet See Rx Instructions .ROUTE .COMPLEX Qty: 6 0RF Rx Instructions: For 250 mg dose pack: take 500 mg today (day 1), then 250 mg for 4 days (days 2-5) albuterol sulfate 90 mcg/actuation HFA aerosol inhaler 1 inh inhalation QID PRN (Reason: shortness of breath or wheezing) Qty: 8.5 0RF ferrous sulfate [FeroSul] 325 mg (65 mg iron) tablet folic acid 1 mg tablet Referrals: [facility] ([facility]),Nicole Ochoa MD [Physician] - No Primary/Family,Physician [Primary Care Provider] - Patient/Caregiver Discharge Instructions Meds to Beds: Yes Education Materials: After a Vaginal , After Delivery [place] Concerns, Breast Care After , Feel Healthy After Print Language: Greek Stand Alone Forms: Malia Award Info., Patient Portal Info Letter Discharge Order Discharge Orders: Discharge (Routine); Ordered 12/07/24 Ordered By: Javy Murcia Planned Discharge Date 12/07/24
--- NOTE | 2024-12-07 10:47 | PC.SS ---
RETAIL RESET MERCHANDISER conducted bedside contact with the patient to address nursing referral indicating patient possessed history of anxiety.? RETAIL RESET MERCHANDISER introduced self and role.? Patient confirmed past history of anxiety.? Patient shared possessing low level of anxiety.? Per patient, level of anxiety has not impaired daily functioning.? Patient is not prescribed medication to address anxiety.? Patient denies history of mental health.? Patient denies history of self-harm behaviors or psychiatric placement.? , Edward; is the patient?s 6th child.? delivered naturally.? Patient interacting appropriate with infant.? FOB is [place].? FOB will be involved with the rearing of the infant.? OB services provided by [facility].? Patient reports compliance with OB appointments.? Patient plans on combo feeding the infant.? Patient is not aligned with WIC.? Patient is receiving SNAP and TANF.? Patient denies history of alcohol/drug use.? Patient denies episodes of domestic violence.? Patient has access to appropriate supplies and equipment.? FOB will provide transportation upon discharge.? Patient describes possessing support system consisting of FOB and extended family.? RETAIL RESET MERCHANDISER provided community resources to include [employer] and [employer].? No further intervention required at this time, manager social responsibility will be available to address any further concerns.? RETAIL RESET MERCHANDISER updated bedside nurse.?
--- NOTE | 2024-12-07 11:28 | XR_ITS ---
Examination: Venous duplex lower extremity sonogram, bilateral. Date and time of exam: December 07, 2024 1140 hours INDICATIONS: Leg pain one day Technique: Multiple sonographic images of the deep venous system have been obtained. B-mode/2-D grayscale imaging of vascular structures and Doppler spectral analysis (waveforms) and color performed Both legs are examined. Findings: Deep venous systems do not demonstrate abnormal echogenicity. All visualized deep veins exhibit compressibility. All visualized deep veins exhibit augmentation. Impression: Negative for deep vein thrombosis
[2024-12-07 11:51] VITALS: BP 97/60; PULSE 84; RESP 16; TEMP 36.8; O2SAT 98
[2024-12-07 15:57] VITALS: BP 99/65; PULSE 85; RESP 17; TEMP 36.9; O2SAT 99
== END 2024-12-07 16:45 | disposition home or self-care (01) | DRG 560 ==
LOC: S4SX 11:42 → S4NX 17:25
PROVIDERS: Admitting Provider Obstetrics & Gynecology; Visit Provider Obstetrics & Gynecology
DX: O77.0 Labor and delivery complicated by meconium in amniotic fluid (principal); Z37.0 Single live birth; Z3A.38 38 weeks gestation of pregnancy
CPT/HCPCS: 36415; 59025; 59409; 85025; 86780; 86850; 86900; 86901; 93970; J2210; J2590; J3010; J7030; J7120; A9270